=== PATIENT | female | born 1965 | race Caucasian/White ===

== ENCOUNTER 2020-09-28 16:34 | Observation (INO) | payer OTHER ==
--- OUTSIDE RECORDS SUMMARY | 2020-09-28 16:36 | XMS REPORT | Continuity of Care Document ---
:1965 Author Organization [facility] t Address [address] [place] [address] Care Team Providers Name Role Phone Asked, Pcp Primary Care Physician Unavailable Ammy SALVADOR, S Attending Clinician Problems Condition Condition Condition Status Onset Resolution Last Treating Co mments Source Name Details Category Date Date Treatment Clinician Date Depression Depression Disease Active [place] 03-13 Methodi 00:00: st 00 Cervical Cervical Disease Active [place] cancer cancer 03-13 Methodi 00:00: st 00 Hemorrhoid Hemorrhoid Disease Active [place] Method[facility] st Allergies, Adverse Reactions, Alerts This patient has no known allergies or adverse reactions. Family History Family Member Diagnosis Comments Start Date Stop Date Source Natural father Diabetes [place] [facility] Natural father Hypertension [place] [facility] Natural father Myelodysplastic [place] syndrome [facility] Natural mother Arthritis [place] [facility] Natural mother Heart disease [place] [facility] Natural mother Hypertension [place] [facility] Paternal Diabetes [place] grandmother Zoroastrian Natural sister Bipolar disorder [place] [facility] Social History Social Habit Start Date Stop Date Quantity Comments Source History of tobacco Cigarette Smoker Al use Z[facility]rian Cigarettes smoked 2017-04-20 2017-04-20 [place] current (pack per 00:00:00 00:00:[address] ) - Reported Cigarette 2017-04-20 2017-04-20 [place] pack-years 00:00:00 00:00:00 [facility]rian Tobacco use and 2017-04-20 2017-04-20 Current user [place] exposure 00:00:00 00:00:00 [facility] Alcohol intake 2017-04-20 2017-04-20 Current [place] 00:00:00 00:00:00 non-drinker of Zoroastrian alcohol (finding) Sex Ass[birth year] At [birth year] [place] 00:00:00 00:00:00 Z[facility]astrian Smoking Status Start Date Stop Date Source Current every day smoker 2017-04-20 00:00:00 Beti blood [facility]rian Medications Ordered Filled Start Stop Current Ordering Indication Dosage Frequency Signature Comments Components Source Medication Medication Date Date Medication? Clinician (SIG) Name Name PREMARIN 2016- Yes Hot flash, TAKE 1 [place] 0.9 mg 1-09 menopausal TABLET BY [facility] tablet 00:00: MOUTH st 00 EVERY DAY Procedures This patient has no known procedures. Plan of Care Planned Activity Planned Date Details Comments Source Future Scheduled 2020-10-11 INFLUENZA VACCINE [place] [facility] Test 00:00:00 [code = INFLUENZA VACCINE] Future Scheduled 2013-05-26 BREAST CANCER [place] [facility] Test 00:00:00 SCREENING [code = BREAST CANCER SCREENING] Future Scheduled 2013-05-26 COLONOSCOPY SCREENING [facility]rian Test 00:00:00 [code = COLONOSCOPY SCREENING] Future Scheduled 2013-05-26 SHINGLES VACCINES [place] [facility] Test 00:00:00 (#1) [code = SHINGLES VACCINES (#1)] Future Scheduled 1984-05-26 Screening for [facility]odist Test 00:00:00 malignant neoplasm of cervix (procedure) [code = 214424774] Future Scheduled 1975 COVID-19 VACCINE (1) [place] [facility] Test 00:00:00 [code = COVID-19 VACCINE (1)] Encounters Start End Encounter Admission Attending Care Care Encounter Source Date/Time Date/Time Type Type Clinicians Facility Department ID 2020-09-27 2020-09-27 HEATHER Lewis [id number] 00:00:00 00:00:00 [facility] [id number] Surgical [id number] Specialti [id number] [place] 2020-09-21 2020-09-21 Outpatient [facility] [id number] [facility]00 [facility] 2020-09-09 2020-09-09 Hospital Ammy [facility] [id number] 09:42:27 23:59:00 Encounter Sami Petit [id number] [place] [id number] [place] [id number] 2020-08-31 2020-08-31 Office Ammy [facility] [id number] 15:00:48 16:25:25 Visit [facility] [id number] Surgical [id number] [facility] [id number] [place] Results This patient has no known results.
[2020-09-28 18:18] LABS: Absolute Lymphocytes (CBC) 4.1 K/uL (0.7-4.9); Basophils % 1.1 % (0-1.3); Hematocrit 47.8 % (36.0-45.0); Lymphocytes % 31.3 % (15.3-44.8); MPV 8.6 fL (7.6-11.3); RBC Red Blood Cell Count 4.63 M/uL (3.86-4.86)
[2020-09-28 18:54] LABS: ALT/SGPT 82 U/L (12-78); AST/SGOT 39 U/L (15-37); Albumin 3.8 g/dL (3.4-5.0); Alkaline Phosphatase 121 U/L (45-117); BUN Blood Urea Nitrogen 17 mg/dL (7-18); Bicarbonate 31 mmol/L (21-32); Bilirubin Direct < 0.1 mg/dL (0-0.2); Bilirubin Total 0.4 mg/dL (0.2-1.0); Glucose Level 112 mg/dL (74-106); Magnesium 1.9 mg/dL (1.8-2.4); Protein, Total 7.7 g/dL (6.4-8.2); Sodium Level 137 mmol/L (136-145)
[2020-09-28 18:55] LABS: Potassium 2.3 mmol/L (3.5-5.1)
[2020-09-28] MEDS ORDERED: POTASSIUM CL SA 10 MEQ TAB PO ONE (19:37)
[2020-09-28] MEDS ORDERED: NA CHLORIDE 0.9% 100 ML ONE (19:37)
[2020-09-28] MEDS ORDERED: KCL 20 MEQ/100 mL IVPB 20 MEQ/100 ML BAG IV ONE ×2 (19:37→20:58)
--- NOTE | 2020-09-28 19:49 | EDPHYS ---
Physician Documentation [facility] Name: Sonali Herrera Age: 55 yrs Sex: Female : 1965 Arrival Date: 09/28/2020 Time: 16:37 Bed 4 Private MD: Stewart [facility] ED Physician Kojo Nascimento HPI: 09/28 19:51 This 55 yrs old Female presents to ER via Ambulatory with complaints of jr8 Abnormal Lab Results. 19:51 Onset: The symptoms/episode began/occurred at an unknown time. Associated signs and jr8 symptoms: Pertinent positives: muscle weakness and palpitations. Modifying factors: The patient symptoms are alleviated by nothing, the patient symptoms are aggravated by nothing. The patient has not experienced similar symptoms in the past. The patient has been recently seen by a physician:. Patient stated that she has been having muscle cramps and weakness for a few weeks. Stated that she had routine preoperative blood work for upcoming surgery. Was found to have significant hypokalemia and was referred to ED at that time. Patient on chlorthalidone . Historical: - Allergies: 17:18 No Known Allergies; ca1 - PMHx: 17:18 Hypertensive disorder; Hypercholesterolemia; ca1 - PSHx: 17:18 hysterectomy; Cholecystectomy; Hemorrhoidectomy; ca1 - Immunization history:: Client reports receiving the 2nd dose of the Covid vaccine, Client reports receiving the 1st dose of the Covid vaccine, Flu vaccine is not up to date. - Social history:: Smoking status: Patient reports the use of cigarette tobacco products, smokes one-half pack cigarettes per day. ROS: 19:51 Eyes: Negative for injury, pain, redness, and discharge, ENT: Negative for injury, jr8 pain, and discharge, Neck: Negative for injury, pain, and swelling, Respiratory: Negative for shortness of breath, cough, wheezing, and pleuritic chest pain, Abdomen/GI: Negative for abdominal pain, nausea, vomiting, diarrhea, and constipation, Back: Negative for injury and pain, MS/Extremity: Negative for injury and deformity, Skin: Negative for injury, rash, and discoloration. 19:51 Cardiovascular: Positive for palpitations, Negative for chest pain, edema, orthopnea, paroxysmal nocturnal dyspnea. 19:51 Neuro: Positive for weakness. Exam: 19:51 Constitutional: This is a well developed, well nourished patient who is awake, alert, jr8 and in no acute distress. ENT: Nares patent. No nasal discharge, no septal abnormalities noted. Tympanic membranes are normal and external auditory canals are clear. Oropharynx with no redness, swelling, or masses, exudates, or evidence of obstruction, uvula midline. Mucous membranes moist. Neck: Trachea midline, no thyromegaly or masses palpated, and no cervical lymphadenopathy. Supple, full range of motion without nuchal rigidity, or vertebral point tenderness. No Meningismus. Cardiovascular: Regular rate and rhythm with a normal S1 and S2. No gallops, murmurs, or rubs. Normal PMI, no JVD. No pulse deficits. Respiratory: Lungs have equal breath sounds bilaterally, clear to auscultation and percussion. No rales, rhonchi or wheezes noted. No increased work of breathing, no retractions or nasal flaring. Abdomen/GI: Soft, non-tender, with normal bowel sounds. No distension or tympany. No guarding or rebound. No evidence of tenderness throughout. Back: No spinal tenderness. No costovertebral tenderness. Full range of motion. Skin: Warm, dry with normal turgor. Normal color with no rashes, no lesions, and no evidence of cellulitis. MS/ Extremity: Pulses equal, no cyanosis. Neurovascular intact. Full, normal range of motion. Neuro: Awake and alert, GCS 15, oriented to person, place, time, and situation. Cranial nerves II-XII grossly intact. Motor strength 5/5 in all extremities. Sensory grossly intact. Cerebellar exam normal. Normal gait. Vital Signs: 17:15 BP 147 / 89; Pulse 121; Resp 18 S; Temp 98.7(O); Pulse Ox 96% on R/A; Weight 89.81 kg ca1 (R); Height 5 ft. 8 in. (172.72 cm) (R); Pain 0/10; 17:33 BP 136 / 84; Pulse 119; Resp 17 S; Pulse Ox 95% on R/A; jd3 19:00 Pulse 100; Resp 16 S; Pulse Ox 96% on R/A; jd3 19:42 BP 127 / 86; Pulse 99; Resp 18 S; Pulse Ox 98% on R/A; ad5 20:30 BP 133 / 100; Pulse 89; Resp 16; Pulse Ox 95% on R/A; jb4 21:30 BP 145 / 89; Pulse 87; Resp 16; Pulse Ox 98% on R/A; jb4 17:15 Body Mass Index 30.11 (89.81 kg, 172.72 cm) ca1 MDM: 17:43 Patient medically screened. jr8 19:48 Data reviewed: vital signs, nurses notes, lab test result(s), EKG, and as a result, I 8 will admit patient. Data interpreted: Pulse oximetry: on room air is 98 %. Interpretation: normal. Counseling: I had a detailed discussion with the patient and/or guardian regarding: the historical points, exam findings, and any diagnostic results supporting the discharge/admit diagnosis, lab results, the need for further work-up and treatment in the hospital. 09/28 17:51 Order name: CBC with Diff; Complete Time: 18:53 [facility] 09/28 17:51 Order name: Magnesium; Complete Time: 19:18 [facility] 09/28 17:51 Order name: Basic Metabolic Panel; Complete Time: 19:18 [facility] 09/28 17:51 Order name: LFT's; Complete Time: 19:18 [facility] 09/28 18:54 Order name: B12; Complete Time: 20:14 [facility] 09/28 18:54 Order name: Folic Acid,Serum (folate); Complete Time: 20:14 [facility] 09/28 17:19 Order name: EKG; Complete Time: 17:19 [facility] 09/28 17:19 Order name: EKG - Nurse/Tech; Complete Time: 17:19 [facility] 09/28 17:50 Order name: IV; Complete Time: 18:10 [facility] Administered Medications: 19:24 Drug: Potassium Chloride 20 mEq Route: IV; Rate: calculated rate; Site: left jb4 antecubital; 20:30 Follow up: Response: No adverse reaction; IV Status: Completed infusion; IV Intake: jb4 100ml 19:24 Drug: Potassium Chloride 40 mEq Route: PO; jb4 20:30 Follow up: Response: No adverse reaction jb4 20:55 Drug: Potassium Chloride 20 mEq Route: IV; Rate: calculated rate; Site: left jb4 antecubital; 21:55 Follow up: Response: No adverse reaction; IV Status: Completed infusion; IV Intake: jb4 100ml Disposition: 09/29 07:06 Co-signature as Attending Physician, Kojo Nascimento MD I agree with the assessment and kdr plan of care. Disposition Summary: 09/28/20 19:49 Hospitalization Ordered Hospitalization Status: Observation jr8 Provider: Dale Gamino jr8 Location: Telemetry/MedSurg (observation) jr8 Condition: Stable jr8 Problem: new jr8 Symptoms: have improved jr8 Bed/Room Type: Standard [facility] Room Assignment: 215(09/28/20 20:44) bb Diagnosis - Hypokalemia jr8 Forms: - Medication Reconciliation Form jr8 - SBAR form jr8 Signatures: Dispatcher [employer] EDMS Kojo Nascimento MD MD kdr Ballard, Brenda RN RN bb Satish Hall PA PA jr8 Luis Angel Reynolds, RN RN jb4 Irene Deluna RN RN ca1 Corrections: (The following items were deleted from the chart) 09/28 20:44 19:49 jr8 bb
--- NOTE | 2020-09-28 19:49 | ER ---
Nurse's Notes [facility] Name: Sonali Herrera Age: 55 yrs Sex: Female : 1965 Arrival Date: 09/28/2020 Time: 16:37 Bed 4 Private MD: Robbie William Diagnosis: Hypokalemia Presentation: 09/28 17:15 Chief complaint: Patient states: Had blood works done today for preop. They called me ca1 and said my K is at 2.8. Denies chest pain, reports sometimes feel like her heart flutters. Coronavirus screen: Client denies travel out of the [place] in the last 14 days. At this time, the client does not indicate any symptoms associated with coronavirus-19. Ebola Screen: Patient negative for fever greater than or equal to 101.5 degrees Fahrenheit, and additional compatible Ebola Virus Disease symptoms Patient denies exposure to infectious person. Patient denies travel to an Ebola-affected area in the 21 days before illness onset. No symptoms or risks identified at this time. Initial Sepsis Screen: Does the patient meet any 2 criteria? No. Patient's initial sepsis screen is negative. Does the patient have a suspected source of infection? No. Patient's initial sepsis screen is negative. Risk Assessment: Do you want to hurt yourself or someone else? Patient reports no desire to harm self or others. Onset of symptoms was September 28, 2020. 17:15 Method Of Arrival: Ambulatory ca1 17:15 Acuity: JIMBO 2 ca1 Historical: - Allergies: 17:18 No Known Allergies; ca1 - PMHx: 17:18 Hypertensive disorder; Hypercholesterolemia; ca1 - PSHx: 17:18 hysterectomy; Cholecystectomy; Hemorrhoidectomy; ca1 - Immunization history:: Client reports receiving the 2nd dose of the Covid vaccine, Client reports receiving the 1st dose of the Covid vaccine, Flu vaccine is not up to date. - Social history:: Smoking status: Patient reports the use of cigarette tobacco products, smokes one-half pack cigarettes per day. Screenin:34 Abuse screen: Denies threats or abuse. Nutritional screening: No deficits noted. jd3 Tuberculosis screening: No symptoms or risk factors identified. Fall Risk Ambulatory Aid- None/Bed Rest/Nurse Assist (0 pts). Gait- Normal/Bed Rest/Wheelchair (0 pts) Mental Status- Oriented to own ability (0 pts). Total Pace Fall Scale indicates No Risk (0-24 pts). Assessment: 18:00 General: Appears in no apparent distress. comfortable, Behavior is calm, cooperative, jd3 appropriate for age. Pain: Denies pain. Quality of pain is described as reporting periodic cramping throughout body. Neuro: Level of Consciousness is awake, alert, obeys commands, Oriented to person, place, time, situation. Cardiovascular: Denies chest pain, Capillary refill < 3 seconds Patient's skin is warm and dry. Rhythm is sinus tachycardia. Respiratory: Airway is patent Respiratory effort is even, unlabored, Respiratory pattern is regular, symmetrical, Denies cough, shortness of breath. GI: No signs and/or symptoms were reported involving the gastrointestinal system. : No signs and/or symptoms were reported regarding the genitourinary system. EENT: No signs and/or symptoms were reported regarding the EENT system. Derm: Skin is intact, Skin is dry, Skin is normal, Skin temperature is warm. Musculoskeletal: Circulation, motion, and sensation intact. Range of motion: intact in all extremities. 19:00 Reassessment: Patient appears in no apparent distress at this time. No changes from jd3 previously documented assessment. Patient and/or family updated on plan of care and expected duration. Pain level reassessed. Patient is alert, oriented x 3, equal unlabored respirations, skin warm/dry/pink. 19:10 Reassessment: Patient appears in no apparent distress at this time. Patient and/or jb4 family updated on plan of care and expected duration. Pain level reassessed. Patient is alert, oriented x 3, equal unlabored respirations, skin warm/dry/pink. 19:42 Reassessment: Started potassium running with 100ml of NS going at 50ml per hour, pt jb4 unable to tolerate, rate of potassium slowed to 25ml/hr, provider notified, provider okayed to run potassium over 1 hour with 250ml of NS at 250ml/hr. 21:00 Reassessment: Patient appears in no apparent distress at this time. Patient and/or jb4 family updated on plan of care and expected duration. Pain level reassessed. Patient is alert, oriented x 3, equal unlabored respirations, skin warm/dry/pink. 22:00 Reassessment: Patient appears in no apparent distress at this time. Patient and/or jb4 family updated on plan of care and expected duration. Pain level reassessed. Patient is alert, oriented x 3, equal unlabored respirations, skin warm/dry/pink. Vital Signs: 17:15 BP 147 / 89; Pulse 121; Resp 18 S; Temp 98.7(O); Pulse Ox 96% on R/A; Weight 89.81 kg ca1 (R); Height 5 ft. 8 in. (172.72 cm) (R); Pain 0/10; 17:33 BP 136 / 84; Pulse 119; Resp 17 S; Pulse Ox 95% on R/A; jd3 19:00 Pulse 100; Resp 16 S; Pulse Ox 96% on R/A; jd3 19:42 BP 127 / 86; Pulse 99; Resp 18 S; Pulse Ox 98% on R/A; ad5 20:30 BP 133 / 100; Pulse 89; Resp 16; Pulse Ox 95% on R/A; jb4 21:30 BP 145 / 89; Pulse 87; Resp 16; Pulse Ox 98% on R/A; jb4 17:15 Body Mass Index 30.11 (89.81 kg, 172.72 cm) ca1 ED Course: 16:37 Patient arrived in ED. mr 16:37 Robbie William DO is Private Physician. mr 17:17 Triage completed. ca1 17:18 Arm band placed on right wrist. EKG completed in triage. Results shown to MD. ca1 17:31 Rob Hathaway RN is Primary Nurse. jd3 17:33 Patient has correct armband on for positive identification. Placed in gown. Bed in low mh5 position. Call light in reach. Side rails up X 1. Warm blanket given. patient monitor on. Pulse ox on. NIBP on. 17:34 EKG done, by ED staff, reviewed by Kojo Nascimento MD. mh5 17:43 Satish Hall PA is PHCP. jr8 17:43 Kojo Nascimento MD is Attending Physician. jr8 18:10 Inserted saline lock: 20 gauge in left antecubital area, using aseptic technique. Blood jd3 collected. 19:40 Primary Nurse role handed off by Rob Hathaway RN jb4 19:40 Rodolfo, Luis Angel, RN is Primary Nurse. jb4 19:48 Dale Gamino DO is Hospitalizing Provider. jr8 22:18 No provider procedures requiring assistance completed. Patient admitted, IV remains in jb4 place. Administered Medications: 19:24 Drug: Potassium Chloride 20 mEq Route: IV; Rate: calculated rate; Site: left jb4 antecubital; 20:30 Follow up: Response: No adverse reaction; IV Status: Completed infusion; IV Intake: jb4 100ml 19:24 Drug: Potassium Chloride 40 mEq Route: PO; jb4 20:30 Follow up: Response: No adverse reaction jb4 20:55 Drug: Potassium Chloride 20 mEq Route: IV; Rate: calculated rate; Site: left jb4 antecubital; 21:55 Follow up: Response: No adverse reaction; IV Status: Completed infusion; IV Intake: jb4 100ml Intake: 20:30 IV: 100ml; Total: 100ml. jb4 21:55 IV: 100ml; Total: 200ml. jb4 Outcome: 19:49 Decision to Hospitalize by Provider. jr8 22:18 Admitted to Med/surg accompanied by tech, via wheelchair, room 215, with chart, Report jb4 called to CESAR Lemon 22:18 Condition: stable 22:18 Discharge instructions given to patient, Instructed on the need for admit, Demonstrated understanding of instructions. 22:19 Patient left the ED. jb4 Signatures: Kasandra Barrera IsabelSatish PA PA jr8 Luis Angel Reynolds RN RN jb4 Martinez, Maria Rob Gold RN RN jd3 Acob, Cheryl, RN RN ca1 Davidson, Andrea ad5
[2020-09-28] MEDS ORDERED: NA CHLORIDE 0.9% 250 ML ONE ×2 (20:00→20:58)
[2020-09-28 20:13] LABS: Folic Acid, (Folate) 8.6 ng/mL (3.1-17.5)
--- NOTE | 2020-09-28 21:23 | P.HP ---
Certification for Inpatient Patient admitted to: Observation With expected LOS: <2 Midnights Patient will require the following post-hospital care: None Practitioner: I am a practitioner with admitting privileges, knowledge of patient current condition, hospital course, and medical plan of care. Services: Services provided to patient in accordance with Admission requirements found in Title 42 Section 412.3 of the Code of Federal Regulations Patient History Date of Service: 09/28/20 Primary Care Provider: none, orthopedic Dr. Duval Reason for admission: Hypokalemia History of Present Illness: 55-year-old female with history of hypertension, hyperlipidemia presents emergency department with reported low potassium levels. Patient is scheduled to have a right knee surgery on Monday and had preoperative labs indicating a low potassium level of 2.8. Patient presented to the emergency department for evaluation, potassium was checked and level was 2.3. Patient also reports palpitations, fatigue, generalize weakness. Patient takes chlorthalidone at home for hypertension, ED provider wishes to admit under obse rvation for potassium repletion. Allergies No Known Allergies Allergy (Verified 09/28/20 08:34) Home Medications: Atorvastatin Calcium [Lipitor] 10 mg PO BEDTIME 09/28/20 Chlorthalidone 50 mg PO DAILY 09/28/20 Cholecalciferol (Vitamin D3) [Vitamin D 5,000 Iu Cap] 5,000 unit PO DAILY 09/28/20 Diclofenac Sodium 75 mg PO DAILY 09/28/20 Duloxetine HCl 30 mg PO DAILY 09/28/20 Omeprazole 20 mg PO DAILY 09/28/20 - Past Medical/Surgical History -: Hypertension -: Hyperlipidemia -: Hysterectomy -: Cholecystectomy -: Hemorrhoidectomy Psychosocial/ Personal History: Patient employed as a deputy, lives alone - Family History Family History: Reviewed- Non-Contributory - Social History Smoking Status: Current every day smoker Counseled patient to stop smoking for: less than 10 minutes Smoking therapy provided: No (Patient declined) Alcohol use: No CD- Drugs: No Caffeine use: Yes Place of Residence: Home Review of Systems 10-point ROS is otherwise unremarkable General: Weakness, Malaise Cardiovascular: Palpitations Physical Examination - Physical Exam General: Alert, In no apparent distress, Oriented x3 HEENT: Atraumatic, PERRLA, Mucous membr. moist/pink, EOMI, Sclerae nonicteric Neck: Supple, 2+ carotid pulse no bruit, No LAD, Without JVD or thyroid abnormality Respiratory: Clear to auscultation bilaterally, Normal air movement Cardiovascular: Regular rate/rhythm, Normal S1 S2 Gastrointestinal: Normal bowel sounds, No tenderness Musculoskeletal: No tenderness Integumentary: No rashes Neurological: Normal speech, Normal strength at 5/5 x4 extr, Normal tone, Normal affect - Studies Laboratory Data (last 24 hrs) 09/28/20 18:08: Sodium 137, Potassium 2.3 L*, BUN 17, Creatinine 0.91, Glucose 112 H, Magnesium 1.9, Total Bilirubin 0.4, AST 39 H, ALT 82 H, Alkaline Phosphatase 121 H 09/28/20 18:08: WBC 13.00 H D, Hgb 16.4 H, Hct 47.8 H, Plt Count 306 Assessment and Plan - Plan Assessment Hypokalemia likely secondary to use of diuretic therapy chlorthalidone with dehydration Hypertension Hyperlipidemia Plan Hypokalemia likely secondary to use of diuretic therapy chlorthalidone with dehydration: patient given 20 mEq of potassium IV and 40 p.o. in the emergency department, will recheck at midnight, potassium protocol in place. Will hold chlorthalidone, patient will likely need this medication changed at discharge. DVT prophylaxis Lovenox 40 mg subcutaneous once daily. Monitor on telemetry. Hypertension: Will need to adjust patient's chlorthalidone or provide supplemental potassium. Will monitor blood pressure during hospitalization determine need. Hyperlipidemia: Continue medications. Discharge Plan: Home Plan to discharge in: 24 Hours - Advance Directives Does patient have a Living Will: No Does patient have a Durable POA for Healthcare: No - Code Status/Comfort Care Code Status Assessed: Yes (Full code) Critical Care: No Time Spent Managing Pts Care (In Minutes): 55
[2020-09-28] MEDS: NS KCL 20MEQ 20 MEQ/1,000 ML BAG IV SCH (22:26)
[2020-09-28] MEDS ORDERED: DULOXETINE 30 MG CAP PO SCH (23:00)
[2020-09-28 23:43] LABS: Potassium 3.1 mmol/L (3.5-5.1)
[2020-09-28] MEDS ORDERED: POTASSIUM 25 MEQ EFFERV TAB PO ONE (23:58)
[2020-09-29] MEDS: HEPARIN 5000 UNIT/ML 1 ML VIAL SQ SCH ×2 (00:22→07:49)
[2020-09-29 01:25] VITALS: O2SAT 92; BMI 30.1
[2020-09-29 04:26] LABS: Absolute Lymphocytes (CBC) 3.4 K/uL (0.7-4.9); Basophils % 0.6 % (0-1.3); Hematocrit 42.7 % (36.0-45.0); Lymphocytes % 38.6 % (15.3-44.8); MPV 9.3 fL (7.6-11.3); RBC Red Blood Cell Count 4.17 M/uL (3.86-4.86)
[2020-09-29 04:46] LABS: Albumin 3.3 g/dL (3.4-5.0); Bilirubin Total 0.5 mg/dL (0.2-1.0); Magnesium 1.7 mg/dL (1.8-2.4); Potassium 3.1 mmol/L (3.5-5.1); Protein, Total 6.8 g/dL (6.4-8.2); Thyroid Stimulating Hormone 2.08 uIU/mL (0.360-3.740)
[2020-09-29] MEDS ORDERED: MAGNESIUM SULFATE 1 gm IVPB 1 GM/100 ML BAG IV ONE (04:53)
--- NOTE | 2020-09-29 06:09 | P.DS ---
Admission Date: 09/28/20 Discharge Date: 09/29/20 Primary Care Provider: none, orthopedic Dr. Duval Disposition: ROUTINE DISCHARGE Discharge Condition: GOOD Reason for Admission: Hypokalemia Consultations: none Procedures: Medical problem list: Hypokalemia likely secondary to use of diuretic therapy chlorthalidone with dehydration Hypertension GERD Right knee arthritis Brief History of Present Illness: 55-year-old female with history of hypertension, hyperlipidemia. Patient presented with low potassium levels. She had preoperative lab done with a potassium of 2.8. In the ER it was 2.3. The patient had reported some palpitations, fatigue and generalized weakness. Patient had been taking chlorthalidone at home. Patient was admitted for treatment. Hospital Course: Patient presented with hypokalemia secondary to diuretic therapychlorthalidone. Patient was admitted for treatment. Patient was given potassium supplementation with improvement. Patient with history of hypertension. Blood pressures have been stable without any medication at this time. Recommend to discontinue chlorthalidone. Patient has tried lisinopril in the past but this caused an ANUJ cough. She also had taken losartan hydrochlorothiazide with noted elevated blood pressure. For now patient will will monitor her blood pressures daily. Recommend to maintain blood pressure less than 130/80. If blood pressures remain above 140/90 consistently then the patient will be started on carvedilol 3.25 mg 1 pill twice daily. Recommend follow-up with PCP in 1 week to follow-up hospitalization. I will try to reach out to her PCP today so that the patient can be seen this week as the patient is to have surgery on Monday with orthopedics. Recommend to recheck labBMP within 2 days to monitor potassium. Patient with hypertension. As mentioned above patient will go home without any medication to start with. She is to monitor her blood pressures daily. If her blood pressures increase above 140/90 consistently then carvedilol 3.25 mg 1 pill twice daily will be started. As mentioned above chlorthalidone has been discontinued due to hypokalemia. Patient has failed therapy on lisinopril due to ANUJ cough and losartan hydrochlorothiazide thiazide due to poor blood pressure control. Recommend follow-up with PCP within 1 week to follow-up hospitalization. Patient with GERD. At discharge she will continue with Prilosec 20 mg daily. Patient with right knee arthritis. She is to have arthroscopic orthopedic surgery on Monday. Recommend follow-up with PCP within the next 2 days to monitor her blood pressure and recheck BMP. If stable patient can proceed with surgery. Recommend no work at this time. Vital Signs/Physical Exam: Temp Pulse Resp BP Pulse Ox 97.7 F 82 14 118/62 96 09/29/20 04:00 09/29/20 04:00 09/29/20 04:00 09/29/20 04:00 09/29/20 04:00 General: Alert, In no apparent distress, Oriented x3, Cooperative HEENT: Atraumatic Neck: Supple Respiratory: Clear to auscultation bilaterally, Normal air movement Cardiovascular: Normal pulses, Regular rate/rhythm Gastrointestinal: Normal bowel sounds, No tenderness, No masses, No rebound, No guarding Musculoskeletal: No erythema, No tenderness, No warmth Integumentary: No tenderness/swelling, No erythema, No warmth, No cyanosis Neurological: Normal speech, Normal strength at 5/5 x4 extr, Normal tone, Normal affect Laboratory Data at Discharge: WBC 8.90 K/uL (4.3-10.9) D 09/29/20 03:22 Hgb 15.1 g/dL (12.0-15.0) H 09/29/20 03:22 Hct 42.7 % (36.0-45.0) 09/29/20 03:22 Plt Count 255 K/uL (152-406) 09/29/20 03:22 Sodium 139 mmol/L (136-145) 09/29/20 03:22 Potassium 3.1 mmol/L (3.5-5.1) L 09/29/20 03:22 BUN 13 mg/dL (7-18) 09/29/20 03:22 Creatinine 0.73 mg/dL (0.55-1.3) 09/29/20 03:22 Glucose 114 mg/dL (74-106) H 09/29/20 03:22 Magnesium 1.7 mg/dL (1.8-2.4) L 09/29/20 03:22 Total Bilirubin 0.5 mg/dL (0.2-1.0) 09/29/20 03:22 AST 35 U/L (15-37) 09/29/20 03:22 ALT 71 U/L (12-78) 09/29/20 03:22 Alkaline Phosphatase 102 U/L (45-117) 09/29/20 03:22 Triglycerides 197 mg/dL (<150) H 09/29/20 03:22 Cholesterol 163 mg/dL (<200) 09/29/20 03:22 HDL Cholesterol 51 mg/dL (40-60) 09/29/20 03:22 Cholesterol/HDL Ratio 3.20 09/29/20 03:22 Home Medications: Duloxetine HCl 30 mg PO BEDTIME 09/28/20 Omeprazole 20 mg PO DAILY 09/28/20 carvediloL [Coreg] 3.125 mg PO BID #60 tab 09/29/20 New Medications: carvediloL [Coreg] 3.125 mg PO BID #60 tab Physician Discharge Instructions: Patient presented with hypokalemia secondary to diuretic therapychlorthalidone. Patient was admitted for treatment. Patient was given potassium supplementation with improvement. Patient with history of hypertension. Blood pressures have been stable without any medication at this time. Recommend to discontinue chlorthalidone. Patient has tried lisinopril in the past but this caused an ANUJ cough. She also had taken losartan hydrochlorothiazide with noted elevated blood pressure. For now patient will will monitor her blood pressures daily. Recommend to maintain blood pressure less than 130/80. If blood pressures remain above 140/90 consistently then the patient will be started on carvedilol 3.25 mg 1 pill twice daily. Recommend follow-up with PCP in 1 week to follow-up hospitalization. I will try to reach out to her PCP today so that the patient can be seen this week as the patient is to have surgery on Monday with orthopedics. Recommend to recheck labBMP within 2 days to monitor potassium. Patient with hypertension. As mentioned above patient will go home without any medication to start with. She is to monitor her blood pressures daily. If her blood pressures increase above 140/90 consistently then carvedilol 3.25 mg 1 pill twice daily will be started. As mentioned above chlorthalidone has been discontinued due to hypokalemia. Patient has failed therapy on lisinopril due to ANUJ cough and losartan hydrochlorothiazide thiazide due to poor blood pressure control. Recommend follow-up with PCP within 1 week to follow-up hospitalization. Patient with GERD. At discharge she will continue with Prilosec 20 mg daily. Patient with right knee arthritis. She is to have arthroscopic orthopedic surgery on Monday. Recommend follow-up with PCP within the next 2 days to monitor her blood pressure and recheck BMP. If stable patient can proceed with surgery. Patient may continue with Cymbalta 30 mg daily. Recommend no work at this time. Diet: AHA Activity: Ad yahaira Followup: Robbie William, [Primary Care Provider] - Time spent managing pt's care (in minutes): 55
[2020-09-29] MEDS ORDERED: POTASSIUM CL SA 10 MEQ TAB PO ONE (08:00)
[2020-09-29 09:40] VITALS: BP 112/55; TEMP 97.8
[2020-09-29] MEDS: NS KCL 20MEQ 20 MEQ/1,000 ML BAG IV SCH (10:14)
--- NOTE | 2020-09-29 11:47 | EKG ---
Test Date: 2020-09-28 Test Time: 17:14:28 Manager Of Business Operations: ROSANA MEASUREMENT RESULTS: Intervals: Rate: 120 TN: QRSD: 74 QT: 448 QTc: 633 [place]: P: TN: QRS: -40 T: 63 INTERPRETIVE STATEMENTS: sinus tachLeft axis deviation Inferior infarct, age undetermined Anterior infarct, age undetermined Prolonged QT Abnormal ECG Compared to ECG 09/28/2020 07:47:[address] [facility] Electronically Signed On 09-29-20 11:46:57 CDT by Jeremy Naylor
--- NOTE | 2020-10-01 10:58 | EKG ---
Test Date: 2020-10-01 Test Time: 09:40:08 Business Architect: SYBIL MEASUREMENT RESULTS: Intervals: Rate: 68 UT: 146 QRSD: 88 QT: 398 QTc: 423 [place]: P: 37 UT: 146 QRS: -19 T: 46 INTERPRETIVE STATEMENTS: Normal sinus rhythm with sinus arrhythmia Nonspecific T wave abnormality Abnormal ECG Compared to ECG 09/28/2020 17:14:28 T-wave abnormality now present Myocardial infarct finding no longer present Prolonged QT interval no longer present Electronically Signed On 10-01-20 10:58:12 CDT by Jeremy Naylor
== END 2020-09-29 10:50 | disposition home or self-care (01) ==
LOC: ER 16:34 → ERHOLD 19:51 → 2ND 21:32
PROVIDERS: ADMIT Family Medicine; ATTEND Family Medicine
DX: E87.6 Hypokalemia (principal); E86.0 Dehydration; I10 Essential (primary) hypertension; K21.9 Gastro-esophageal reflux disease without esophagitis; M17.11 Unilateral primary osteoarthritis, right knee; E78.5 Hyperlipidemia, unspecified; E78.00 Pure hypercholesterolemia, unspecified; F17.210 Nicotine dependence, cigarettes, uncomplicated; Z90.49 Acquired absence of other specified parts of digestive tract; Z90.710 Acquired absence of both cervix and uterus
CPT/HCPCS: 96365; 93005; 85025 ×2; 80048 ×2; 36415; 83735 ×2; 84132; 80061; 80076; 84443; 84439; 82746; 82607; 80053; 99285; 96366; J1644 ×2; J3480 ×4; J3475; J7050 ×2; G0378 ×2

== ENCOUNTER 2020-10-09 06:21 | Day surgery (SDC) | payer OTHER ==
--- NOTE | 2020-09-28 09:05 | RAD REPORT ---
EXAM DESCRIPTION: RAD - Chest Pa And Lat (2 Views) - 09/28/2020 9:00 am CLINICAL HISTORY: preop COMPARISON: CHEST PA AND LAT 2 VIEW dated 04/01/2008 FINDINGS: No evidence of edema or pneumonia. The heart size is within normal limits.No acute osseous abnormality. No significant pleural effusions or pneumothorax. IMPRESSION: No acute cardiopulmonary disease.
[2020-09-28 09:17] LABS: Absolute Lymphocytes (CBC) 3.3 K/uL (0.7-4.9); Basophils % 0.9 % (0-1.3); Hematocrit 48.4 % (36.0-45.0); Lymphocytes % 31.2 % (15.3-44.8); MPV 9.3 fL (7.6-11.3); RBC Red Blood Cell Count 4.71 M/uL (3.86-4.86)
[2020-09-28 09:20] LABS: Protime INR 1.1
[2020-09-28 09:31] LABS: Potassium 2.8 mmol/L (3.5-5.1)
[2020-10-01 18:35] LABS: Potassium 3.1 mmol/L (3.5-5.1)
[2020-10-09] MEDS ORDERED: Ringers Lactate 1,000 ML IV ONE (06:57)
[2020-10-09] MEDS ORDERED: CEFAZOLIN/SWI 1gm 1 GM/10 ML SYR ONE (06:57)
[2020-10-09] MEDS ORDERED: MIDAZOLAM HCL 2 MG/2 ML INJ ONE (07:37)
[2020-10-09] MEDS ORDERED: propofoL 200 MG/20 ML VIAL IV ONE (07:37)
[2020-10-09] MEDS ORDERED: FENTANYL CITR 100 MCG/2 ML ONE (07:37)
[2020-10-09] MEDS ORDERED: ONDANSETRON 4 MG/2 ML VIAL ONE (07:38)
[2020-10-09] MEDS ORDERED: LIDOCAINE 2% MPF 5 ML VIAL ONE (07:38)
[2020-10-09] MEDS ORDERED: KETOROLAC 30 MG/ML INJ ONE (07:38)
[2020-10-09] MEDS ORDERED: dexAMETHasone 10 MG/ML VIAL ONE (07:38)
[2020-10-09] MEDS: BUPIVACAINE 0.25% PF 30 ML VIAL ONE ×2 (08:02→08:22)
--- NOTE | 2020-10-09 08:32 | P.BOP ---
Preoperative diagnosis: right knee medial meniscus tear Postoperative diagnosis: same, right knee chondromalacia medial femoral condyle Primary procedure: right knee arthroscopic partial medial meniscectomy Traffic Operator: NONE,NONE Estimated blood loss: 3 cc Specimen: none Findings: see dictation Anesthesia: General Complications: None Implants: none Fluids & blood products: per anesthesia record; TT: 24 mins @ 300 mmHg Transferred to: Recovery Room Condition: Good
[2020-10-09] MEDS: FENTANYL CITR 100 MCG/2 ML ONE ×2 (08:37→08:42)
[2020-10-09] MEDS: HYDROMORPHONE HCL 1 MG/ML INJ ONE ×2 (08:49→08:54)
[2020-10-09] MEDS ORDERED: HYDROCODONE/APAP 5/325 MG TAB ONE (09:47)
[2020-10-09 09:55] VITALS: BP 130/56; TEMP 97.8
[2020-10-09 09:57] VITALS: O2SAT 96
--- NOTE | 2020-10-14 10:05 | OP ---
Date of Procedure: 10/09/2020 Surgeon: Aramis Duval MD Preoperative Diagnosis: Right knee medial meniscus tear. Postoperative Diagnoses: 1.Right knee medial meniscus tear. 2.Right knee chondromalacia, medial femoral condyle. Procedure Performed: Right knee arthroscopic partial medial meniscectomy. Anesthesia: General LMA. Fluids: Per Anesthesia record. Estimated Blood Loss: 3 cc. Complications: None. Implants: None. Tourniquet Time: 24 minutes at 300 mmHg. Indication For Procedure: Sonali is a 55-year-old female, who presented to my clinic with signs, sym ptoms, and MRI findings consistent with right knee medial meniscus tear. I discussed with the patien t at length risks and benefits associated with operative and nonoperative treatment. She expressed u nderstanding and elected to proceed with operative treatment. Description Of Procedure: After informed consent was obtained, the patient was identified in the pre operative holding area. The right lower extremity was marked. The patient was then brought back to the operating room, transferred to the operative table in supine fashion, placed under general anesth esia. The right lower extremity was then prepped and draped in usual sterile fashion. A time-out wa s initiated. The correct patient and procedure were confirmed and identified. The patient did recei ve her preoperative prophylactic antibiotics. Esmarch was used to exsanguinate the right lower extre mity and tourniquet was inflated to 300 mmHg. Standard anteromedial and anterolateral portals were c reated. Arthroscope was brought in via the anterolateral portal and diagnostic arthroscopy was perfo rmed. The patient was noted to have some chondromalacia changes on the undersurface of the patella a s well as the trochlear groove. The arthroscope was then brought into both medial and lateral gutter s. There were no loose bodies found within the gutters. The arthroscope was then brought in the med ial compartment. The patient was noted to have some grade 3 and 4 changes of the medial femoral cond yle along its weightbearing surface. A complex tear of the posterior horn and body of the medial men iscus was identified. Using meniscal biters and arthroscopic shaver, a partial medial meniscectomy w as performed to smooth meniscal borders. The meniscus was found to be stable to probe. The arthrosc ope was then brought into the intercondylar notch. The patient was noted to have an intact ACL and P CL, which were stable to probe. The arthroscope was in bilateral compartment. The patient was noted to have pristine cartilage as well as no significant lateral meniscus tear. Arthroscopic instrument s were then brought back into the patellofemoral joint and the joint was then irrigated to remove any loose tissue within the joint. Arthroscopic sutures were then removed without complication. The wo unds were then irrigated thoroughly with normal saline and portals were approximated using a 3-0 Hartley cryl. Sterile dressings were applied. Tourniquet was let down. The patient awakened and transferre d to PACU in stable condition. Postoperative Plan: She will be weightbearing as tolerated to right lower extremity. She will follo w up in clinic in 1 week for wound check. CV/MODL Voice ID: [id number] Report ID: [id number]
== END 2020-10-09 09:45 | disposition home or self-care (01) ==
LOC: OR 06:21
PROVIDERS: ATTEND Orthopaedic Surgery Sports Medicine
PROC: 0SBC4ZZ Excision of Right Knee Joint, Percutaneous Endoscopic Approach (ICD-10-PCS; principal; 2020-10-09 07:30)
DX: S83.231A Complex tear of medial meniscus, current injury, right knee, initial encounter (principal); M25.561 Pain in right knee; I10 Essential (primary) hypertension; E78.00 Pure hypercholesterolemia, unspecified
CPT/HCPCS: 93005; 85025; 80048 ×2; 36415 ×2; 85610; 85730; 71046; 29881; J2704; J2250; J3010 ×2; J1100; J1170; J0690; J7120; J2405

== ENCOUNTER 2023-12-16 13:20 | Inpatient (IN) | payer OTHER ==
[2023-12-16 14:14] VITALS: BMI 26.6
[2023-12-16] MEDS ORDERED: POLYETHYL GLY 3350 17 GM/DOSE PO PRN (15:46)
[2023-12-16 16:53] LABS: Specific Gravity 1.012 (1.005-1.030); Sqamous Epithelial <5 /HPF (None Seen); Urine Bacteria <20 /HPF (<20); Urine Bilirubin NEGATIVE (Negative); Urine Blood 1+ (Negative); Urine Clarity Turbid (Clear); Urine Color Light-Yellow (Yellow); Urine Culture Reflex Order NOT NEEDED; Urine Glucose NEGATIVE (Negative); Urine Ketones NEGATIVE (Negative); Urine Micro Reflex YN NO BILL MICROSCOPIC; Urine Mucus Slight /HPF (None Seen); Urine Nitrite NEGATIVE (Negative); Urine Protein NEGATIVE (Negative); Urine Urobilinogen Normal (Normal); Urine WBC <5 /HPF (<5)
[2023-12-16] MEDS: GABAPENTIN 300 MG CAP PO SCH (19:25)
[2023-12-16] MEDS: MELATONIN 3 MG TABLET PO SCH (19:25)
[2023-12-16] MEDS: ATORVASTATIN 20 MG TAB PO SCH (19:25)
[2023-12-16] MEDS: CARBOXYMETHYLCELLULOSE SODIUM 0.5% 15 ML OPTH SCH (19:28)
[2023-12-17 07:12] LABS: Absolute Basophils 0.1 K/uL (0-0.5); Absolute Eosinophils 0.3 K/uL (0-0.5); Absolute Monocytes 0.6 K/uL (0.1-1.3); Absolute Neutrophil 3.4 K/uL (1.8-8.0); Basophils % 0.8 % (0-1.3); Eosinophils % 4.2 % (0-4.4); Hematocrit 51.2 % (36.0-45.0); Hemoglobin 17.2 g/dL (12.0-15.0); Lymphocytes % 40.5 % (15.3-44.8); MCH 35.4 pg (27.0-35.0); MCHC 33.5 g/dL (32.0-36.0); MCV 105.5 fL (80-100); MPV 9.4 fL (7.6-11.3); Neutrophils % 46.5 % (41.7-73.7); Nucleated Red Blood Cells % 0.1 % (0-0); Platelets 284 thou/uL (152-406); RBC Red Blood Cell Count 4.85 M/uL (3.86-4.86); Red Cell Distribution Width 14.3 % (12.1-15.2)
[2023-12-17 07:27] LABS: Albumin 3.3 g/dL (3.4-5.0); Anion Gap 8.9 mEq/L (5.0-15.0); Magnesium 1.8 mg/dL (1.6-2.4); Potassium 3.9 mEq/L (3.5-5.1); Prealbumin 23.1 mg/dL (20-40)
[2023-12-17 07:44] LABS: Blood Morphology Comment NOTED (NOT SEEN); Macrocytosis 1+; Platelet Estimate ADEQ; White Blood Cell Scan OK (OK)
[2023-12-17] MEDS: PANTOPRAZOLE 40MG TABLET PO SCH (07:48)
[2023-12-17] MEDS: GABAPENTIN 100 MG CAP PO SCH (08:54)
[2023-12-17] MEDS: DULOXETINE 30 MG CAP PO SCH (08:54)
[2023-12-17] MEDS: AMLODIPINE 5 MG TAB PO SCH (08:54)
[2023-12-17] MEDS: ASPIRIN 81 MG CHEWABLE TABLET PO SCH (08:54)
[2023-12-17] MEDS: LIDOCAINE 4% PATCH TOP SCH (08:54)
[2023-12-17] MEDS: DOCUSATE NA/SENNA CONC 1 TAB PO SCH (10:00)
[2023-12-17] MEDS ORDERED: ACETAMINOPHEN 500 MG TAB PO PRN (10:29)
[2023-12-17] MEDS ORDERED: MAGNESIUM HYDROXIDE 8% 30 ML PO PRN (10:33)
[2023-12-17] MEDS: MAGNESIUM OXIDE 400 MG TAB PO SCH (12:02)
--- NOTE | 2023-12-17 13:33 | HP ---
Date of Admission: 12/16/2023 Time Of Service: 10 a.m. Chief Complaint: "I want to walk again. My left arm and leg are weak after the stroke." History Of Present Illness: Ms. 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 [facility] Prior to her stroke, she was independent, driving, cooking, working without li mitations in a demanding job, and on October 09, 2023, she was found on the floor, unable to move, and w as life-flighted to [facility], where imaging identified a large ri ght MCA territory ischemic infarct and a small right frontoparietal ischemic infarct along with the r ight ICA occlusion. She underwent a thrombectomy and eventually due to dysphagia, had a PEG tube page josh on 07/19/2023. She was transferred to [facility] for inpatient aggressive rehabilitation on October 16, and was discharged home on November 06. While at home, she declined. She indicated that one day she fell out of bed, hitting the right knee, and was petrified about how painful it was and she was unab le to move until she had the help being lifted up. Since the fall, she has had posttraumatic stress from the fear of falling again and more injury. She is densely paretic on the left upper extremity. She has significant weakness in left lower extremity. Unable to stand and ambulate. She has safety awareness issues, impulsivity. Currently, she is at moderate to maximum assistance for functional m obility, maximum assistance for all activities of daily living and needing significant help just for basic activities. It turns out that the PEG tube now may be removed at some point. It was placed 2 months ago. She is now fully able to eat independently with all consistencies without aspiration. H er family nurse practitioner recommended her for inpatient rehabilitation again and now we are seeing in rehabilitation to help her to improve her activities of daily living, transfer as safely as possi ble, mobilize with a wheelchair and to be able to manage her nutritional status. Past Medical History: As noted above. Past Surgical History: Cholecystectomy, bile duct surgery, left total knee arthroplasty, hysterectom y. Social History: Former smoker. Allergies: NO KNOWN DRUG ALLERGIES. Medications: Tylenol 500 mg every 6 hours as needed. Norvasc 5 mg daily. Eliquis 2.5 mg twice chloe y. Artificial Tears 1 drop twice daily in each eye. Aspirin 81 mg daily. Lipitor 20 mg at bedtime. Zyrtec 5 mg daily. Cymbalta 30 mg daily. Gabapentin 100 mg in the morning and at around 2, 300 mg at night. Lidocaine patch to apply topically daily. Milk of magnesia 30 mL daily. Magnesium oxide 400 mg twice daily. Melatonin 3 mg at bedtime. Robaxin 750 mg 3 times daily. Naprosyn 250 mg 3 ti mes daily as needed. Protonix 40 mg daily. Senokot 2 at bedtime. Trazodone 50 mg at night, and Gly colax 17 g daily. Laboratory Studies: White blood cell count 7.3, hemoglobin 17.2, hematocrit 31.2, MCV 105, MCH 35.4, those are slightly elevated. Her platelets 284. Sodium 138, potassium 3.9, chloride 106, carbon di oxide 27, BUN 16, creatinine 0.75, glucose 100. Hemoglobin A1c is pending. Calcium 9.8, magnesium 1 .8, albumin 3.3, prealbumin 23.1. Urinalysis is turbid clarity, 1+ blood, 5-10 red blood cells, othe rwise unremarkable. Family History: Noncontributory. Social History: Patient lives alone. Smoked in the past. No recent alcohol use. No drug use. Review of Systems: She reports some pain in the left shoulder and arm, which is the paretic side where the arm hangs wit hout support, most of the time. She has no significant proximal or distal movement in the left upper extremity and there is pain in the left arm at the lateral aspect. 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 At times, it will, reportedly, she says, actua lly will pull her PEG tube at night causing pain and may wake her from sleep. Also, some stiffness a nd spasms in the left lower extremity. She is actually depressed which was helped by the Allan macedo d she says she is a jovial person and looks at life in a positive way. Current Level Of Functioning: Setup assistance for eating, oral hygiene. Maximum assistance for harry leting, bathing. Moderate assistance for upper body dressing and lower body dressing along with masoud ing and doffing footwear. Moderate assistance from rolling left to right and right to left. For sit ting to lying, maximum assistance. For lying to sitting on side of bed, maximum assistance. Sit to stand, maximum assistance. Transfer from bed to chair to toilet and shower, maximum assistance. Amb ulation only 2 feet at maximum assistance with a rolling walker. Physical Examination: Vital Signs: Blood pressure 127/77, pulse 67, respiratory rate 16, temperature 97.7, oxygen saturati on 97%. Weight 175 pounds. Height 5 feet 8 inches. BMI 26.6. General: Ms. Herrera is sitting in a chair comfortably. Daughter is on the phone. HEENT: She is normocephalic, atraumatic. Sclerae anicteric. Oropharynx pink and moist. Neck: Supple. Chest: Clear. Heart: Regular. Extremities: Showed no significant edema, cyanosis, or clubbing. Neurological: Subtle left nasolabial fold decrease. She has good excursions on smiling. No obvious expressive or receptive aphasias. Decreased to touch in the left face. She has a dense left homony mous hemianopsia. Unable to see objects in the left visual field in upper, middle, and lower areas. She is able to see out to the right visual field without restriction. Motor: She has dense paresis in the left upper extremity, 0 noted proximally and distally, perhaps trace in the arm when gravity is eliminated at the biceps. On the left lower extremity, she has around 2-3 proximally. She has a footdrop, and no significant movement. They are up and down on the right upper and lower extremity. She has no significant strength limitations. Sensation, decreased light touch temperature on the le ft compared to the right side. Coordination intact in upper and lower extremities. Reflexes brisk l eft compared to her right side, upper and lower extremities. Rehab And Medical Assessment And Plan: Ms. Herrera is a 58-year-old patient in the rehabilitation unit with impairment category 20, miscellaneous. Impairment group code is 16, debility, noncardiac, nonpulmonary. Etiologic diagnosis of lacunar, ataxic, hemiparesis of the left nondominant side. Her comorbids are decreased mobility, decreased physical functioning, diabetes mellitus, hypertension, d yslipidemia, multiple falls, hypertension, insomnia, left-sided weakness, left shoulder pain, urinary incontinence, and she has a PEG tube in place that may be removed at some point, and she had the lef t total knee arthroplasty and cognitive issues following her stroke which primarily involved memory l oss and she does have impulsivity. Plan: She will have physical, occupational, and speech therapy for 3.5 hours, 5 of 7 days. We will continue with aggressive management of her hypertension with Norvasc and clonidine 0.1 for systolic g reater than 170, as needed. Continue with Cymbalta for depression. Continue with Zyrtec for allergi es, Lipitor for dyslipidemia, Artificial Tears for dry eyes, Eliquis 2.5 mg twice daily for DVT risk reduction, aspirin 81 mg daily for stroke risk reduction, gabapentin 100 twice daily and 300 at night for neuropathic pain, lidocaine patch apply to the right knee and left shoulder. The patient did sa y she has a patch from home that she would like to use, she was told, and she said it is good natural oils. She may bring that patch and apply it, once the nurse is aware of it and so they can track it . She has Naprosyn on board, Protonix for reflux, Senokot for constipation, Desyrel for insomnia. Comorbidities That Are Impacting Rehabilitation: Currently, she does have the PEG tube in place whic h she says the left arm may grab at night and wake her up. We will address that by putting lidocaine patch around there and will adjust as appropriate, gabapentin, and will put an abdominal binder arou nd the belly to remove that arm from pulling on the area. She is somewhat impulsive. Again, she was instructed on how important it is to have the nursing staff assist her with all transfers and mobili zation to prevent falls, which she says she has PTSD from. Rehab Specific Plan: Ms. Herrera will have physical and occupational therapy and if need be speech therapy to help her with the ability to transfer from bed to chair. If need be, sliding board into a tub and out of a tub, and to be able to do aus-te-sahxy with the independence, mobilize with a whee lchair towards independence. It may be very difficult for her to ambulate any meaningful distances w ith a rolling walker or to go up and down steps, but we will still attempt to work with that, work on her ability to dress upper and lower body, to don and doff footwear and do all of these safely. Als o, speech to help make good final decisions about her care, her transfer, medications, and followup. She will also at some point and after discharge will have the PEG tube addressed and removed by like ly surgeon, Dr. Snider. Ms. Herrera and her daughter have good understanding of the process of admission to the inpatient r ehabilitation facility, how she will benefit from physical, occupational, and if need be, speech ther apy. She will have 24 hours a day, 7 days a week, skilled rehabilitation nursing, daily physician ev aluation and management, and psychologist social evaluation and management for discharge planning, home e quipment, and continue rehabilitation therapy and physician followup. If need be additional help fro m the hospitalist service, pulmonary service, cardiology service will be consulted. Barriers To Discharge: Currently, she is still significantly impulsive and is not likely to be able to ambulate meaningful distances and I will place her at risk of falls, especially at night which has occurred before. She will really have emphasis placed on this. Family training will be very import ant. She may have to go to long term depending on how she is doing, but the goal will be to go back home with therapy continuing and she may need 24-hour care at home as well. Length Of Stay: Around 14 days. Disposition: Home with family and Home Health to continue. Prognosis: Fair. Rehab Specific Goals: 1.Become independent with upper and lower body dressing, and donning and doffing footwear. 2.Independently mobilize a wheelchair 250 feet. 3.Work on independent transfers. She may not be able to ambulate and go up and down steps, but will attempt with moderate assistance for her to ambulate around 5-10 feet. 4.Independently work on cognitive functioning and sound decision making. The above goals were reviewed with Ms. Herrera and she is in agreement. By signing this document, I acknowledge I personally performed a full physical examination on Ms. Sanford dumont no later than 24 hours after her admission to the inpatient rehabilitation unit and it has bee n determined that she is able to tolerate the above course of treatment at an intensive level for a r easonable period of time. A detailed individualized plan of care for her will be completed by hospit al day 4 based on the preadmission screen, history and physical and therapy evaluations. RAJEEV Voice ID: [id number]
[2023-12-17] MEDS: NAPROXEN 250 MG TAB PO PRN (16:20)
[2023-12-17] MEDS: APIXABAN 2.5 MG TABLET PO SCH (20:00)
[2023-12-17] MEDS: ENSURE ENLIVE 237 ML CAN PO SCH (20:01)
[2023-12-17] MEDS: methocarbamoL 750 MG TAB PO PRN (23:24)
[2023-12-17] MEDS: TRAZODONE 50 MG TABLET PO PRN (23:26)
[2023-12-18] MEDS: CETIRIZINE HCL 5 MG TABLET PO PRN (10:59)
[2023-12-18] MEDS: DOCUSATE NA/SENNA CONC 1 TAB PO PRN (11:00)
[2023-12-18] MEDS: LIDOCAINE 4% PATCH TOP SCH (11:00)
[2023-12-18] MEDS: CARBOXYMETHYLCELLULOSE SODIUM 0.5% 15 ML OPTH PRN (11:01)
[2023-12-18] MEDS: GABAPENTIN 300 MG CAP PO SCH (19:44)
--- NOTE | 2023-12-19 00:06 | PN ---
Date of Progress Note: 12/18/2023 Time Of Service: 1:35 p.m. Subjective: Ms. Herrera is lying in bed in between therapy sessions. She reports no significant c hange in the dense left upper extremity paresis. 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 As a result, she will have an abdominal binder in page ce when asleep at night to help decrease that and cause pain and may wake her at night. Otherwise, s he is feeling much better about therapy and has no new complaints. Objective: No fevers, chills. No significant myalgias, arthralgias. Some spasms of the left should er. Pain that is mitigated with lidocaine patch to the left shoulder and the right knee, which needs right knee replacement with Dr. Vargas, which will be done once she is away from the acute stroke phase and out of rehab. A lidocaine patch was placed on the right knee. Physical Examination: Vital Signs: Blood pressure 131/77, pulse of 78, respiratory rate 16, temperature 96.8, oxygen satur ation 95%. General: Ms. Herrera still has dense paresis of the left upper extremity. No significant movement there. Left lower extremity around 2/5 to 3/5 proximally and distally. Decreased sensation on the left compared to right side. She has a left homonymous hemianopsia. Decreased movement of the left nasolabial fold. Laboratory Studies: No new laboratory studies compared to yesterday. Yesterday, laboratory studies showed sodium 138, potassium 3.9, chloride 106, carbon dioxide 27, BUN 16, creatinine 0.75, glucose o f 100. Hemoglobin A1c 5.4, prealbumin 23.1, albumin 3.3, magnesium 1.8, calcium 9.8. Hemoglobin 17. 2, hematocrit 51.2, white blood cell count 7.3, platelets 284. Urinalysis from the 5th, turbid eliseo ty, 1+ blood, 5-10 red blood cells, otherwise unremarkable. X-ray/imaging: No new x-rays or imaging. Medications: Tylenol Extra Strength 500 mg every 6 hours as needed for acou-sw-iyyerzci pain; Norvas c 5 mg daily; Eliquis 2.5 mg twice daily; Artificial Tears apply 1 drop twice daily to each eye; aspi rin 81 mg daily; Lipitor 20 mg at bedtime; Zyrtec 5 mg daily; Cymbalta 30 mg daily; gabapentin 300 mg twice daily; lidocaine patch apply topically daily as indicated; milk of magnesia 30 mL daily for co nstipation; magnesium oxide 400 mg twice daily; melatonin 3 mg at bedtime; methocarbamol 750 mg 3 jarad es daily; Naprosyn 250 mg twice daily; Ensure Enlive 237 mL twice daily; Protonix 40 mg daily; [place] t-S 2 twice daily; Desyrel 50 mg at bedtime. Progress Made With Physical, Occupational, And Speech Therapy: Today, with Physical Therapy, she was able to ambulate with parallel bars, 2 sets of 10 feet forward, 10 feet backwards with verbal cues. She did start to train with a single-prong cane 5 feet with moderate assistance due to losing postur al control. With Occupational Therapy, she did require maximal assistance for lower body dressing, m oderate assistance for upper body dressing, moderate assistance for showering and washing buttocks, m aximal assistance for toileting, minimum assistance for grooming, supervision for eating. With her s peech, she was evaluated with long-term goal of reading independently, paragraph level with 90% accur acy, improving executive functional skills with standby assistance level with improved safety and to be able to return to home with independence and some assistance of family. Assessment: Ms. Herrera is a 58-year-old patient in the rehabilitation unit with a lacunar infarct in the right brain producing dense hemiparesis in the left upper extremity and lesser extent in the left lower extremity with dysarthria and dysphagia. She has comorbids, constipation, insomnia, malnu trition, muscle spasms, left upper extremity alien limb syndrome, neuropathic pain, depression, dysli pidemia, hypertension, and dry eyes. Plan: 1.She will continue with physical, occupational, and speech therapy, 3.5 hours, 5 of 7 days. 2.Her list of medications as noted above continued to manage her comorbid conditions. She does have DVT prophylaxis on board with Eliquis 2.5 mg twice daily. Stroke risk managed with aspirin and Lipi tor, and other medications such as Cymbalta for depression, melatonin for insomnia along with the trazodone at night. She has Senokot for constipation and reflu x is managed with Protonix. LACIE/BOZENA Voice ID: [id number] Report ID: [id number]
[2023-12-19] MEDS: TRAMADOL HCL 50 MG TAB PO SCH (14:22)
--- NOTE | 2023-12-20 01:23 | PN ---
Date of Progress Note: 12/19/2023 Time Of Service: 1:35 p.m. Subjective: Ms. Herrera is lying in bed and still somewhat worried about slow recovery of the left hemiparesis. Her left alien limb syndrome is still present. When in bed, abdominal binders are in place and the left arm is not able to hold onto the PEG tube. She is managing that better. She has no new complaints. Objective: She denies any fevers, chills. She has mild myalgias and arthralgias and spasming in the left arm and shoulder occasionally occurring. She did mention she needs to see Dr. Dhillon tomorro w. Dr. Vargas, which was actually noted in the last note is Dr. Dhillon and she will see him for evaluation for possible replacement of the right knee. However, she was told of course that the left side of the body is the one that has had a stroke where she has weakness in the left leg and if ther e is surgery done on the right leg, she will have 2 weak legs and be significantly debilitated and ta ke a longer time to recover and she will likely then not have surgery in the right knee. She did hav e 2 pain patches placed in the right knee, but still said there was significant pain and therefore me dications were adjusted. Physical Examination: Vital Signs: Blood pressure 128/75, pulse 89, respiratory rate 17, temperature 98.3, oxygen saturati on 93%. General: Again, Ms. Herrera is resting comfortably. Extremities: She did say the right knee which has the brace on there as she was doing some sit-to-st and and trying to stand up on a step in the gym did have some pain and again 2 pain patches were plac ed. Otherwise, no new deficits. She has significant weakness in the left arm with some contractures in the fingers, very difficult for her to do any and she actually has no voluntary movement there to do any meaningful functional use. Laboratory Studies: No new laboratory studies. X-ray/imaging: No new x-rays or imaging. Medications: Medications have been reviewed. She now has Protonix 40 mg daily and she has scheduled tramadol which is 50 mg daily to help manage with the pain. She has Tylenol as well 500 mg as neede d in addition to duloxetine 30 mg daily and gabapentin 300 mg twice daily. Furthermore, Naprosyn 250 mg 3 times daily is there for pain, mild to moderate. Progress Made With Physical And Occupational Therapy: Today, she did toe taps on a 4-inch step with right lower extremity working on left lower extremity balance and stability. Did shift back and fort h for her balance stepping up and down before any step with right handrails for support and required moderate assistance for that. Majlr-os-ucpts transfer from wheelchair to and from the plinth table w as done. Sea-mx-zczin training from an elevated table done with moderate assistance. With occupatio nal therapy, minimum assistance for wheelchair to toilet transfer, maximum assistance for pulling upp er and lower body dressing and down, and also for toileting. Had very poor standing balance. With h er speech, she needed maximum assistance to locate every target due to the visual field deficit on th e left. She did require moderate assistance again scanned to the left, accuracy was 70%. Assessment And Plan: Ms. Herrera is a 58-year-old patient with stroke affecting the right brain an d left body. She has significant issues of degenerative changes in the knees. She has had the left knee replaced beside of the stroke and the right knee needs replacing, but is not likely to be done i n close proximity to her stroke. She will see Dr. Dhillon in the morning and will be evaluated by leena izaguirre for perhaps conservative treatment until she is able to have it replaced. In the meantime, she wi ll continue with physical, occupational, and speech therapy. Continue all medications as noted. LB/MODL Voice ID: [id number] Report ID: [id number]
[2023-12-20] MEDS: PANTOPRAZOLE 40MG TABLET PO SCH (07:18)
[2023-12-20] MEDS: HYDROCODONE/APAP 5/325 MG TAB PO PRN (15:49)
[2023-12-20] MEDS: GABAPENTIN 300 MG CAP PO SCH (19:17)
--- NOTE | 2023-12-20 22:31 | RAD REPORT ---
EXAM: Knee Left 2 View HISTORY: [facility] s/p left TKA and sunrise view COMPARISON: None TECHNIQUE: 3 views of the left knee were obtained. FINDINGS: No knee effusion is seen. There is no evidence of acute fracture or dislocation. Left knee arthroplasty hardware in satisfactory positioning. No soft tissue swelling or other soft tissue abnormality is present. IMPRESSION: No evidence of acute osseous abnormality.
--- NOTE | 2023-12-21 00:54 | PN ---
Date of Progress Note: 12/20/2023 Time Of Service: 1:20 p.m. Subjective: Ms. Herrera is resting in bed. She is in moderately depressed mood because of the sig nificant weakness on the left side from her stroke, which she has dense paresis of left arm. She sti ll notes that there is some alien limb type activity, but when the abdominal area is covered, where s he has a PEG tube placed, the left arm is unable to grab onto that and an abdominal binder is used. Objective: No fevers or chills. Still some myalgias and arthralgias, especially in the left shoulde r, which is the paretic side that is hanging down, and the right knee, which needs replacement, for joanna vickers she will see Dr. Dhillon today for an evaluation. The left knee was replaced prior to her stro ke and that is the paretic side as the left leg. Physical Examination: Vital Signs: Blood pressure is 130/75, pulse 65, respiratory rate 16, temperature 97.4, oxygen satur ation 94%. General: Ms. Herrera again is resting comfortably. She is in no significant distress. Neuromuscular: Of course does mention the pain, and pain medications were adjusted today including N orco 5/325, gabapentin 600 mg 2 times a day and tramadol was discontinued. She does have the paretic left arm, that is densely paretic. Left leg also paretic, but is able to arrive around 3/5 strength . Right side, upper and lower extremities, 5/5. Laboratory Studies: No new laboratory studies. X-ray/imaging: No new x-rays or imaging except there was a knee x-ray done, reports are pending. Medications: She continues on Eliquis 2.5 mg twice daily, Norvasc 5 mg daily, [place] 5/325 every 6 ho urs as needed for pain, Tylenol 500 mg every 6 hours. She has Artificial Tears 1 drop in each eye tw ice daily as needed, aspirin 81 mg daily, Lipitor 20 mg at bedtime, Zyrtec 5 mg daily as needed, Cymb harris 20 mg daily, gabapentin 600 mg twice daily, lidocaine patch apply 2 topically daily as appropria te, melatonin 3 mg at bedtime, magnesium oxide 400 mg twice daily, milk of magnesium 30 mL daily for constipation, Robaxin 750 mg 3 times daily, Naprosyn 250 mg 3 times daily, Ensure Enlive 237 mL twice daily, Protonix 40 mg daily, Glycolax 17 g daily, and Senokot-S 2 tablets twice daily along with Raghu yrel 50 mg at bedtime for insomnia. Progress Made With Physical, Occupational, And Speech Therapy: Today, with physical therapy, sit-to- stand from wheelchair and parallel bars done with moderate assistance. She did have some left arm an d right knee pain as noted, and again medications were changed. Tramadol 50 mg, she said, did nothin g for her pain and therefore that is why the pain medication was escalated. She did ambulate in the parallel bars 8 feet forwards and 8 feet backwards with cuing required. With occupational therapy, s he did tolerate left scapular manipulation, range of motion and stretching, right and left deltoid, f lexion, and abduction to help decrease her stiffness. Again, she is going to see Dr. Dhillon later today. Regarding her speech, she did recall details of a picture seen with 100% accuracy and minimum assistance. Visual scanning used during an task with 80% accuracy and maximum cues. Assessment: Ms. Herrera is a 58-year-old patient in rehabilitation unit with a right lacunar infar ct in the posterior region producing dense paresis of left upper extremity and lesser extent to the l eft lower extremity. She has significant arthritic degenerative changes in the knee, where the left was replaced and the right knee needs replacement and she will see Dr. Dhillon today for it. She do es have significant pain in her left shoulder because of the loss of tone. She is getting a shoulder brace to facilitate moving the shoulder back upwards to minimize stretching of the brachial plexus a nd minimize pain. Her additional comorbidities include decreased mobility, decreased physical functi oning, insomnia, malnutrition, gastroesophageal reflux, neuropathic pain, depression, dyslipidemia, d ry eyes, hypertension. She will continue her physical and occupational therapy 3.5 hours, 5 of 7 day s. Continue on all medications as noted with adjustments made to the pain medications. Continue blayne p venous thrombosis prophylaxis with Eliquis 2.5 mg twice daily. Continue with medication for dyslip idemia as noted. Continue to give gabapentin for neuropathic pain that was increased today. Continue Robaxin as wel l. LB/MODL Voice ID: [id number] Report ID: [id number]
[2023-12-21 06:38] LABS: Absolute Eosinophils 0.3 K/uL (0-0.5); Absolute Lymphocytes (CBC) 2.8 K/uL (0.7-4.9); Absolute Monocytes 0.6 K/uL (0.1-1.3); Absolute Neutrophil 2.9 K/uL (1.8-8.0); Basophils % 0.7 % (0-1.3); Eosinophils % 4.8 % (0-4.4); Hematocrit 46.3 % (36.0-45.0); Hemoglobin 15.9 g/dL (12.0-15.0); Lymphocytes % 41.4 % (15.3-44.8); MCH 36.1 pg (27.0-35.0); MCHC 34.4 g/dL (32.0-36.0); MCV 104.9 fL (80-100); MPV 9.1 fL (7.6-11.3); Neutrophils % 44.1 % (41.7-73.7); Nucleated Red Blood Cells % 0.2 % (0-0); Platelets 241 thou/uL (152-406); RBC Red Blood Cell Count 4.41 M/uL (3.86-4.86); Red Cell Distribution Width 14.1 % (12.1-15.2)
[2023-12-21 06:51] LABS: Anion Gap 10.9 mEq/L (5.0-15.0); Potassium 3.9 mEq/L (3.5-5.1); Prealbumin 24.7 mg/dL (20-40)
--- NOTE | 2023-12-21 21:00 | PN ---
Date of Progress Note: 12/21/2023 Time Of Service: 1:15 p.m. Subjective: Ms. Herrera is in the gym doing exercises with her left arm, which is the paretic arm. She is also trying to visualize a page to bring her left homonymous hemianopsia into her perception . Review of Systems: No fevers, chills, nausea, vomiting. Still mild myalgias, arthralgias in left upper extremity and le ft lower extremity. Physical Examination: Vital Signs: Blood pressure 120/78, pulse 77, respiratory rate 16, temperature 97, and oxygen satura tion 97%. General: Ms. Herrera again is sitting comfortably. Neuro: She has from her perspective a left homonymous hemianopsia, dense paresis of left upper extre mity, more improved in the left lower extremity. Laboratory Studies: White blood cell count 6.7, hemoglobin 15.9, platelets 241. Sodium 140, potassi um 3.9, chloride 106, carbon dioxide 27, BUN 24, creatinine 0.78, glucose 106, calcium 9.4. Magnesiu m 2.0. Albumin 3.0, prealbumin 24.7. X-ray/imaging: No new x-rays or imaging. Progress Made With Physical, Occupational, And Speech Therapy: With physical therapy today, she did use the parallel bars and she did 8 feet forward and 8 feet backwards. With a rolling walker, she co robert 20 feet with moderate assistance. Qqk-pv-xnkmr done with moderate assistance. With occupation al therapy, self propels a wheelchair with partial assistance, steering required. Worked on scanning [id number] for the letter A to help with her left homonymous hemianopsia. With speech, used visu al scanning to connect numbers in order and she did that pattern with 100% accuracy and minimum janet tance. Assessment: Ms. Herrera is a 58-year-old patient with right hemispheric stroke producing dense par esis of left upper extremity, left homonymous hemianopsia, and left lower extremity weakness. She grady s comorbid dyslipidemia, dry eyes, depression, insomnia, constipation, malnutrition, alien limb syndr ome. She has decreased mobility, decreased physical functioning. Plan: 1.She will continue with physical, occupational, and speech therapy, 3.5 hours a day, 5 of 7 days. 2.She has a list of medications, which are continued including Eliquis for DVT risk reduction, Norva sc for blood pressure control, [place] for pain, Lipitor for dyslipidemia, Zyrtec for allergies, Cymbal ta for depression and neuropathic pain along with gabapentin. She is on Milk of Magnesia for constip ation, Robaxin for muscle spasms, melatonin for insomnia, Protonix for GE reflux, Ensure alive for he r malnutrition. LACIE/BOZENA Voice ID: [id number] Report ID: [id number]
--- NOTE | 2023-12-22 13:16 | P.RH.PN ---
Estimated Length of Stay: 15 Expected Discharge Date: 12/29/23 Discharge Disposition Plan: Home Family Support: Yes Skilled Nursing Goal: Mobility, Transfers, Self Care Vital Signs: Last Vital Signs Temp 97 F 12/22/23 06:28 Pulse 66 12/22/23 08:16 Resp 18 12/22/23 09:17 BP 132/83 12/22/23 08:16 Pulse Ox 98 12/22/23 09:17 Laboratory: Laboratory Last Values WBC 6.70 thou/uL (4.3-10.9) 12/21/23 05:21 RBC 4.41 M/uL (3.86-4.86) 12/21/23 05:21 Hgb 15.9 g/dL (12.0-15.0) H 12/21/23 05:21 Hct 46.3 % (36.0-45.0) H 12/21/23 05:21 MCV 104.9 fL (80-100) H 12/21/23 05:21 MCH 36.1 pg (27.0-35.0) H 12/21/23 05:21 MCHC 34.4 g/dL (32.0-36.0) 12/21/23 05:21 RDW 14.1 % (12.1-15.2) 12/21/23 05:21 Plt Count 241 thou/uL (152-406) 12/21/23 05:21 MPV 9.1 fL (7.6-11.3) 12/21/23 05:21 Neutrophils % 44.1 % (41.7-73.7) 12/21/23 05:21 Lymphocytes % 41.4 % (15.3-44.8) 12/21/23 05:21 Monocytes % 9.0 % (3.3-12.3) 12/21/23 05:21 Eosinophils % 4.8 % (0-4.4) H 12/21/23 05:21 Basophils % 0.7 % (0-1.3) 12/21/23 05:21 Absolute Neutrophils 2.9 K/uL (1.8-8.0) 12/21/23 05:21 Absolute Lymphocytes 2.8 K/uL (0.7-4.9) 12/21/23 05:21 Absolute Monocytes 0.6 K/uL (0.1-1.3) 12/21/23 05:21 Absolute Eosinophils 0.3 K/uL (0-0.5) 12/21/23 05:21 Absolute Basophils 0.0 K/uL (0-0.5) 12/21/23 05:21 Platelet Estimate Adeq 12/17/23 06:24 Macrocytosis 1+ 12/17/23 06:24 Morphology Comment Noted (NOT SEEN) 12/17/23 06:24 Sodium 140 mEq/L (136-145) 12/21/23 05:21 Potassium 3.9 mEq/L (3.5-5.1) 12/21/23 05:21 Chloride 106 mEq/L (98-107) 12/21/23 05:21 Carbon Dioxide 27 mEq/L (21-32) 12/21/23 05:21 Anion Gap 10.9 mEq/L (5.0-15.0) 12/21/23 05:21 BUN 24 mg/dL (7-18) H 12/21/23 05:21 Creatinine 0.78 mg/dL (0.55-1.02) 12/21/23 05:21 Est GFR (CKD-EPI) 87 ml/min (=/>90) L 12/21/23 05:21 Glucose 106 mg/dL (74-106) 12/21/23 05:21 Hemoglobin A1c 5.4 % (4.2-6.3) 12/17/23 06:24 Calcium 9.4 mg/dL (8.5-10.1) 12/21/23 05:21 Magnesium 2.0 mg/dL (1.6-2.4) 12/21/23 05:21 Albumin 3.0 g/dL (3.4-5.0) L 12/21/23 05:21 Prealbumin 24.7 mg/dL (20-40) 12/21/23 05:21 Urine Color Light-yellow (Yellow) 12/16/23 15:55 Urine Clarity Turbid (Clear) H 12/16/23 15:55 Urine pH 6.0 (5.0-7.0) 12/16/23 15:55 Ur Specific [place] 1.012 (1.005-1.030) 12/16/23 15:55 Glucose (UA)(Auto) Negative (Negative) 12/16/23 15:55 Urine Ketones Negative (Negative) 12/16/23 15:55 Urine Blood 1+ (Negative) H 12/16/23 15:55 Urine Nitrite Negative (Negative) 12/16/23 15:55 Urine Bilirubin Negative (Negative) 12/16/23 15:55 Urine Urobilinogen Normal (Normal) 12/16/23 15:55 Ur Leukocyte Esterase Negative [place]/uL (Negative) 12/16/23 15:55 Urine RBC 5-10 /HPF (None Seen) H 12/16/23 15:55 Urine WBC <5 /HPF (<5) 12/16/23 15:55 Ur Squamous Epith Cells <5 /HPF (None Seen) 12/16/23 15:55 U Non-Squamous Epi Cells <5 /HPF (None Seen) 12/16/23 15:55 Urine Bacteria <20 /HPF (<20) 12/16/23 15:55 Urine Mucus Slight /HPF (None Seen) 12/16/23 15:55 Urine Culture Reflexed Not needed 12/16/23 15:55 Urine Total Protein Negative (Negative) 12/16/23 15:55 Smear Scan Ok (OK) 12/17/23 06:24 Weight: 175 lb Wound Present: No Closed Surgical Incision Present: No Negative Pressure Wound Therapy Present: No Physician Update: Labs reviewed and are stable. Left shoulder pain is better controlled with the [place] 5/325 mg and a left shoulder brace. Very motivated, SLUMS 28. Met 1/4 speech goals. Still very impulsive. Left homonous hemianopsia. Mod assist with gait. Independent with bed mobility. RW 25' with mod to max assistance. Left sided neglect. Summary: Patient's care plan and group home goals have been reviewed and revised as necessary. Please see the Rehabilitation Signature page for all necessary signatures.
[2023-12-24] MEDS: CALCIUM CARBONATE CHEW 500MG TAB PO PRN (19:53)
[2023-12-26] MEDS: GABAPENTIN 300 MG CAP PO SCH (15:07)
--- NOTE | 2023-12-27 05:06 | PN ---
Date of Progress Note: 12/26/2023 Time Of Service: 9:30 a.m. Chief Complaint: Ms. Herrera is somewhat disappointed in the slow recovery of her strength on the left side from her stroke affecting the right brain. Review of Systems: Mild myalgias and arthralgias. No rash. No depression. No other positives on the systems review. Physical Examination: Vital Signs: Blood pressure 124/79, pulse 84, respiratory rate 18, temperature 97.9. Oxygen saturation 95%. General: Ms. Herrera is resting comfortably. She is in no significant distress. HEENT: She appears normocephalic, atraumatic. Sclerae anicteric. Oropharynx is moist. Neck: Supple. Chest: Clear. Heart: Regular. Extremities: No significant edema or cyanosis. She does have, of course, dense paresis of the left upper more than lower extremity. Left nasolabial fold decrease, unchanged. Laboratory Studies: No new laboratory studies. X-ray/imaging: No new x-rays or imaging. Progress Made With Physical, Occupational, And Speech Therapy: Today, with physical therapy, she was able to ambulate forward 2 sets 8 feet each with a right handrail and backwards 2 sets 8 feet. Gait training, she did work with a left hand splint and the rolling walker. Left AFO, Justin wrap around the left ankle in place. She did report feeling very good about her therapy and she is completing the therapy. Regarding occupational therapy, she required minimum assistance for bathing. Wash and dry, right upper extremity, buttocks and back required contact guard assistance due to leaning to the left when doing ADLs. With her speech, divided attention skills completed using 2 letter cancellation task with 92% accuracy and moderate assistance. Assessment: Ms. Herrera is a 58-year-old patient in the rehabilitation unit with a lacunar infarct producing a left hemiparesis of the upper more than lower extremity, dysarthria, dysphagia and left homonymous hemianopsia. She has decreased mobility, decreased physical functioning, dry eyes, depression, insomnia, constipation, malnutrition, and alien limb syndrome from the left- sided stroke affecting the left body. Plan: She will continue with physical, occupational, and speech therapy as noted for 3.5 hours, 5 of 7 days. Will continue with [place] for pain, which she said is adequate for pain control. Lipitor for dyslipidemia. Zyrtec for allergies. Cymbalta for depression. Norvasc for blood pressure control. Eliquis for DVT prophylaxis. Gabapentin for neuropathic pain. Milk of magnesia for her constipation. Robaxin for muscle spasms. Melatonin for insomnia, Protonix for GE reflux. Ensure Enlive for malnutrition. LACIE/BOZENA Voice ID: [id number] Report ID: [id number] [facility]
--- NOTE | 2023-12-27 22:39 | PN ---
Date of Progress Note: 12/27/2023 Time Of Service: 1:20 p.m. Subjective: Ms. Herrera is feeling better with her therapy, still has significant paresis of left upper extremity from her stroke, but feels she is able to do more in terms of holding onto a walker w hen actually the arm is placed on the walker with a restrictor and she can mobilize somewhat better, doing transfers somewhat better, but still of course significantly weak in the left upper and lower e xtremities. She is to be discharged in the morning and is requesting a [place] prescription to go home . Prescriptions written in the office and family will come in the morning to pick that up. Review of Systems: Mild myalgias, arthralgias in the left side that is improved. Still has some pain in the left leg of course, which is a sign expected from a stroke. Physical Examination: Vital Signs: Blood pressure 129/73, pulse 82, respiratory rate 16, temperature 97.8, oxygen saturati on 95%. General: Ms. Herrera is sitting in a chair in between therapy sessions in the room. HEENT: She appears normocephalic, atraumatic. Neuro: She has left nasolabial fold decrease. She has good appropriate communication. No significa nt expressive aphasia, mild dysarthria. She still has dense paresis of left upper extremity, very di fficult to see any significant movement proximally and distally with the left hand and arm. Left low er extremity slightly improved in terms of strength, but still requires significant help to try to st and and transfer and balance. Laboratory Studies: No new laboratory studies. X-ray/imaging: No new x-rays or imaging. Progress Made With Physical, Occupational, And Speech Therapy: Today with her physical therapy, she did squat pivot transfers on the plinth table backwards and forwards. She was able to do gait traini ng, ambulating 8 feet forwards and 8 feet backwards on parallel bars. She did have the left hand spl int as noted. She did use a rolling walker with splint and left lower extremity AFO 2 sets of 10 fee t and 1 set of 50 feet with moderate assistance and lots of cuing required. With occupational therap y, required minimum assistance for toilet hygiene, contact guard assistance, transfers to the toilet, contact guard for wheelchair to edge of bed. The patient's daughter was there for family training a nd will be assisting her as she is home and of course she will continue with home health for therapy, physical, occupational, and speech. Assessment: Ms. Herrera is a 58-year-old patient with a lunar infarct involving right hemisphere p roducing dense left paresis of upper more than lower extremity, dysarthria, and some dysphagia. 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 Plan: 1.She will continue with physical, occupational, and speech therapy for 3.5 hours, 5 of 7 days. 2.[place] continued for pain. 3.Lipitor for dyslipidemia. 4.Zyrtec for her allergies. 5.Cymbalta for depression, Norvasc for hypertension, Eliquis for DVT prophylaxis, gabapentin for mary ropathic pain, milk of magnesia for constipation, Robaxin for muscle spasm, melatonin for insomnia, P rotonix for GE reflux, Ensure Enlive for malnutrition. 6.She will be discharged home in the morning and will continue therapy via Home Health. LACIE/BOZENA Voice ID: [id number] Report ID: [id number]
[2023-12-28 06:30] VITALS: BP 114/64; TEMP 97.4
== END 2023-12-28 12:15 | disposition home or self-care (01) | DRG 57 ==
LOC: 5TH 13:20
PROVIDERS: ADMIT Psychiatry & Neurology Neurology with Special Qualifications in Child Neurology; ATTEND Psychiatry & Neurology Neurology with Special Qualifications in Child Neurology
DX: I69.354 Hemiplegia and hemiparesis following cerebral infarction affecting left non-dominant side (principal); E46 Unspecified protein-calorie malnutrition; R41.4 Neurologic neglect syndrome; H53.462 Homonymous bilateral field defects, left side; I10 Essential (primary) hypertension; E78.5 Hyperlipidemia, unspecified; F17.200 Nicotine dependence, unspecified, uncomplicated; F32.A Depression, unspecified; G47.00 Insomnia, unspecified; I69.391 Dysphagia following cerebral infarction; E11.9 Type 2 diabetes mellitus without complications; R32 Unspecified urinary incontinence; Z96.652 Presence of left artificial knee joint; K59.00 Constipation, unspecified; I69.322 Dysarthria following cerebral infarction; Z68.26 Body mass index [BMI] 26.0-26.9, adult
CPT/HCPCS: 36415; 80048; 81001; 82040; 83036; 83735; 84134; 85025; 87086; 87088; 92523; 97112; 97116; 97124; 97129; 97161; 97165; 97530; 97542

== ENCOUNTER 2024-03-25 09:25 | Inpatient (IN) | payer OTHER ==
[2024-03-25 17:51] LABS: Specific Gravity 1.005 (1.005-1.030); Sqamous Epithelial <5 /HPF (None Seen); Urine Bacteria <20 /HPF (<20); Urine Bilirubin NEGATIVE (Negative); Urine Blood Trace (Negative); Urine Clarity Turbid (Clear); Urine Color Colorless (Yellow); Urine Crystals Unidentified Few /HPF (None Seen); Urine Culture Reflex Order NOT NEEDED; Urine Glucose NEGATIVE (Negative); Urine Ketones NEGATIVE (Negative); Urine Micro Reflex YN NO BILL MICROSCOPIC; Urine Nitrite NEGATIVE (Negative); Urine Protein NEGATIVE (Negative); Urine RBC <5 /HPF (None Seen); Urine Urobilinogen Normal (Normal); Urine WBC <5 /HPF (<5)
[2024-03-25] MEDS ORDERED: VALACYCLOVIR 500 MG TAB PO SCH (19:02)
[2024-03-25] MEDS: DULOXETINE 30 MG CAP PO SCH (20:39)
[2024-03-25] MEDS: APIXABAN 2.5 MG TABLET PO SCH (20:40)
[2024-03-25] MEDS: VALACYCLOVIR 500 MG TAB PO SCH (20:40)
[2024-03-25] MEDS: BACLOFEN 10 MG TAB PO SCH (20:40)
[2024-03-25] MEDS: MAGNESIUM OXIDE 400 MG TAB PO SCH (20:40)
[2024-03-25] MEDS: ATORVASTATIN 20 MG TAB PO SCH (20:40)
[2024-03-25] MEDS: TRAZODONE 50 MG TABLET PO SCH (20:40)
[2024-03-25] MEDS: LIDOCAINE VISCOUS 2% SOLN 15 ML UDC MM PRN (20:41)
--- NOTE | 2024-03-26 02:38 | HP ---
Date of Admission: 03/25/2024 Time Of Service: 1 p.m. Chief Complaint: "I need to become stronger and try to walk again." History Of Present Illness: Ms. Herrera is a 58-year-old patient with gastroesophageal reflux dise ase, prior stroke with left-sided paresis, left homonymous hemianopsia, dysphagia, cervicalgia, dysli pidemia, who had been completely independent, cooking, working, physically demanding job when she suf fered a stroke on October 09, 2023. She had completed multiple rounds of physical therapy. Most recent discharge from rehabilitation was on December 27 where she was independent with bed mobility, conta ct guard with wheelchair to commode transfer, xeq-zq-[id number] moderate assistance, ambulating about 8 fe et, minimum assistance for bathing, upper body dressing, lower body dressing. She did return home wi [facility] and eventually was able to transfer to outpatient therapy. However, she suffered a fa ll after [place] and the caregiver noted that she stayed in bed for about a week after. [facility] er and family noted significant decline after the fall. She did attempt to restart outpatient physic al therapy in March, but was turned away due to her limitations. At that point, her nurse practiti johanne and family physician recommended inpatient rehab for her to return to prior level of functioning and reduce risk of rehospitalization. Currently, maximum assistance required for transfers, sit-to- stand, and she is unable to ambulate. She is now admitted to the unit. Past Medical History: Depression, GERD, insomnia, stroke, hypertension, dyslipidemia, left shoulder pain, dysarthria, dysphagia, cervicalgia, left homonymous hemianopsia. Past Surgical History: Cholecystectomy, bile duct surgery with cholecystectomy, hysterectomy, left t otal knee arthroplasty. Social History: Smoked in the past. No alcohol, tobacco, or IV drug use currently. Allergies: NO KNOWN DRUG ALLERGIES. Medications: [place] 5/325 every 6 hours as needed, Norvasc 5 mg daily, Eliquis 2.5 mg twice daily, as pirin 81 mg daily, Lipitor 20 mg at bedtime, baclofen 5 mg at bedtime, duloxetine 30 mg twice daily, viscous lidocaine 15 mL t.i.d. as needed for cold sore on lip, magnesium oxide 400 mg twice daily, Pr otonix 40 mg daily, Senokot-S 2 at bedtime. She has Valtrex 500 mg 3 times daily, and trazodone 25 m g at bedtime. Family History: Noncontributory. Laboratory Studies: Blood work is currently on order. Urinalysis shows trace blood, turbid clarity urine. X-ray/imaging: No recent x-rays or imaging. Review of Systems: She does report some mild spasming in the left upper and lower extremity and some difficulty with res ting and sleeping and the pain in the sore lip area on the right. In addition, some slight difficult y with sleep, although she reported sleep has done better and bowel movements have been done fairly w ell. Mild pain. No other positives on the systems review. Current Level Of Functioning: Currently, setup assistance for eating and grooming, bathing is max as sist, mod assist for upper body dressing, maximal assistance for lower body dressing, donning and dof fing footwear, maximal assistance for toileting, wheelchair transfer maximum assistance, toilet trans ruiz maximum assistance, and stairs, not able to attempt at this point. She comprehends well and expr esses herself well. Rehab And Medical Assessment And Plan: Ms. Herrera is a 58-year-old patient in the rehabilitation unit with impairment category 01 stroke. Impairment group code is 01.1, left body involvement, right brain. Etiologic diagnosis, sequelae of stroke. Her comorbid conditions are depression, decreased mobility, decreased physical functioning, hypertension, dyslipidemia, of course stroke, left homonymo us hemianopsia, cervicalgia. Plan: 1.She will have physical, occupational, and speech therapy 3.5 hours, 5 of 7 days. 2.We will use Eliquis 2.5 mg twice daily for DVT prophylaxis, aspirin 81 mg daily for stroke risk re duction, Norvasc 5 mg daily for blood pressure management, for muscle spasms baclofen 5 mg at bedtime , duloxetine 30 mg twice daily for neuropathic pain, and [place] for severe breakthrough pain 5/325 susan ry 6 hours as needed. She has lidocaine patch applied to the shoulder on the left. She has magnesiu m oxide also for muscle spasms, Protonix for GE reflux, Senokot for constipation, trazodone for insom sophy, and the Valtrex for her cold sore breakout. The lidocaine viscous orally also for pain in the m outh. Comorbidities That Are Impacting Rehabilitation: She has significant paresis from stroke and homonym ous hemianopsia and is at high risk of ongoing falls. Fall precautions therefore will be adhered to strictly with gait belt and wheelchair following the patient as she tried attempts to ambulate. She has mild muscle spasms following stroke and is at risk of contractures at night. She will have a rol led towel for the hand and work on leg flexion and extension and will use an AFO to help reduce the p ointing effect of the left foot following stroke. Rehab Specific Plan: Ms. Herrera will have physical, occupational, and speech therapy for 3.5 hour s, 5 of 7 days to improve her ability to work on transfers from her bed to a wheelchair. Will use a sliding board if she is unable to stand and balance, but the goal is to use the right leg and arm and to be able to transfer towards independence and mobilized a wheelchair 250 feet with independence, a mbulate around 50 feet hospital distances with independence and attempt to go up and down steps at le ast 5 with modified independence or towards independence. Also she will work with speech to assess h er swallowing needs and work on cognitive issues and communication in addition to helping recall what she has learned in physical and occupational therapy. Ms. Herrera and her daughter have a good understanding of the process of admission to the inpatient rehabilitation unit and how she will benefit from physical, occupational, and speech therapy. She w ill have 24 hours a day, 7 days a week skilled rehabilitation nursing, daily physician evaluation and management, and social service evaluation for discharge planning, home equipment, followup, and to c ontin with therapy. If need be, additional help from the Hospitalist Service will be sought. Barriers To Discharge: Ms. Herrera does have significant stroke and high risk of falling, may requ catherine extended stay in hospital and may require 24 hours supervision to help reduce risk of additional falls. This may not be available at home and the patient may require an extended stay into skilled n ursing. Length Of Stay: Around 2 to 3 weeks. Disposition: Expected to be home with Home Health, continuing therapy and family at home helping. Prognosis: Good. Code Status: Full code. Rehab Specific Goals: 1.Become independent as much as possible with upper and lower body dressing, transferring from bed t o chair to toilet. 2.Transferring to a shower. 3.Mobilizing household distances independently. 4.Performing cognitive functioning independently. The above goals were reviewed with Ms. Herrera and she is in agreement. By signing this document, I acknowledge I personally performed a full physical examination with Ms. Regina calderon no later than 24 hours after her admission to the inpatient rehabilitation facility and dete rmined that she is able to tolerate the above course of treatment at an intensive level for a reasona ble period of time. A detailed individualized plan of care for her will be completed by hospital day 4 based on the preadmission screen, history and physical, and therapy evaluations. RAJEEV Voice ID: [id number]
[2024-03-26 07:03] LABS: Absolute Eosinophils 0.2 K/uL (0-0.5); Absolute Lymphocytes (CBC) 2.7 K/uL (0.7-4.9); Absolute Monocytes 0.7 K/uL (0.1-1.3); Absolute Neutrophil 3.2 K/uL (1.8-8.0); Basophils % 0.6 % (0-1.3); Eosinophils % 3.4 % (0-4.4); Hematocrit 50.9 % (36.0-45.0); Hemoglobin 17.1 g/dL (12.0-15.0); Lymphocytes % 39.5 % (15.3-44.8); MCH 34.2 pg (27.0-35.0); MCHC 33.7 g/dL (32.0-36.0); MCV 101.4 fL (80-100); MPV 9.2 fL (7.6-11.3); Monocytes % 10.7 % (3.3-12.3); Neutrophils % 45.8 % (41.7-73.7); Nucleated Red Blood Cells % 0.2 % (0-0); Platelets 281 thou/uL (152-406); RBC Red Blood Cell Count 5.01 M/uL (3.86-4.86); Red Cell Distribution Width 14.4 % (12.1-15.2)
[2024-03-26] MEDS: PANTOPRAZOLE 40MG TABLET PO SCH (07:15)
[2024-03-26] MEDS: HYDROCODONE/APAP 5/325 MG TAB PO PRN (07:15)
[2024-03-26] MEDS ORDERED: DULOXETINE 30 MG CAP PO SCH (08:00)
[2024-03-26 08:04] LABS: Albumin 3.4 g/dL (3.4-5.0); Anion Gap 8.7 mEq/L (5.0-15.0); Potassium 3.7 mEq/L (3.5-5.1)
[2024-03-26] MEDS: ASPIRIN EC 81 MG TAB PO SCH (09:19)
[2024-03-26] MEDS: AMLODIPINE 5 MG TAB PO SCH (09:20)
[2024-03-26 16:39] VITALS: BMI 25.7
[2024-03-26] MEDS: PAIN RELIEF TOP SCH (17:23)
[2024-03-26] MEDS: CALCIUM CARBONATE CHEW 500MG TAB PO PRN (20:52)
--- NOTE | 2024-03-26 23:26 | PN ---
Date of Progress Note: 03/26/2024 Time Of Service: 1:25 p.m. Subjective: Ms. Herrera is resting comfortably. She is happier with therapy so far and still has significant weakness on the left side, left hemiparesis and she has a left homonymous hemianopsia and still has difficulty with mobilization, transferring, and dressing. Objective: Some mild tightness in the muscles on her left upper and lower extremity, especially with mobilization and exercise. Otherwise, no fevers or chills, no rash, no psychiatric complaints. Physical Examination: Vital Signs: Blood pressure 121/72, pulse 73, respiratory rate 16, temperature 97.4, oxygen saturati on 94%. General: Ms. Herrera resting in bed in between therapy sessions. She appears normocephalic. Scle evan anicteric. Oropharynx moist. Neck: Supple. Chest: Clear. Heart: Regular. Extremities: No significant edema. She has similar to yesterday left hemiparesis, left homonymous h emianopsia, decreased sensation in left compared to right upper and lower extremity. Laboratory Studies: White blood cell count 7.4, hemoglobin 17.1, platelets 281. Sodium 140, potassi um 3.7, chloride 111, carbon dioxide 24, BUN 20, creatinine 0.82, glucose 119. Hemoglobin A1c 5.6, c alcium 9.2, magnesium 2.0, albumin 3.4, prealbumin 23.0. Urinalysis: Trace blood and turbid clarity , otherwise unremarkable. Urinalysis shows no colony forming units, no growth. X-ray/imaging: No new x-rays or imaging. Medications: [place] 5/325 every 6 hours as needed for severe pain; Norvasc 5 mg daily for hypertensio n; Eliquis 2.5 mg twice daily for DVT prophylaxis; aspirin 81 mg daily for stroke risk reduction; Lip itor 40 mg at bedtime, baclofen 5 mg at bedtime for muscle spasms; Tums 50 mg every 4 hours for GE re flux, which she did report some; duloxetine 30 mg twice daily for neuropathic pain and mood stabiliza tion. She has magnesium oxide 400 mg twice daily for muscle spasms, Protonix 40 mg daily for GE refl ux, Senokot-S 2 at bedtime for constipation, trazodone 25 mg at bedtime for insomnia, and she is now on Valtrex for breakout of herpes involving the mouth, that is a cold sore and that is improving, but slowly. Progress Made With Physical And Occupational Therapy: With physical therapy today, she ambulated 40 feet twice, 20 feet once, 25 feet once with moderate assistance using a rolling walker. She required maximal assistance for donning and doffing left upper extremity clothes on a platform. She did have as she mobilized. She mobilized wheelchair 125 feet twice with standby assistance for ob stacle negotiation and left-sided neglect. Performed kndodr-bw-ycy transfers with standby assistance , multiple uqm-mr-spcmf transfers required moderate assistance. With occupational therapy, required minimum assistance for toileting, pull up pants and down on the left side especially due to impaired dynamic balance and left hemiparesis. Lwi-qb-pwmzw transfers, contact guard assistance. Contact gua rd assistance with toilet transfers and verbal cues. She did have slow pace of activity. Assessment: Ms. Herrera is a 58-year-old patient in the rehabilitation unit with sequelae of strok e. She has noted the left-sided involvement with weakness, neglect, and visual deficits. She has de creased mobility, decreased physical functioning. She has cold sore outbreak and on Valtrex. Insomn ia treated with trazodone, GE reflux with Protonix and Tums. She did report some heartburn after gurjit ls and lying down. Continue her Cymbalta for depression and neuropathic pain modulation, magnesium a nd baclofen for nighttime muscle spasms, Lipitor for dyslipidemia, and aspirin for stroke risk reduct ion along with Norvasc for hypertension, [place] for severe pain. Of course, she will continue with ph ysical, occupational, and speech therapy 3-1/2 hours, 5 of 7 days. LB/MODL Voice ID: [id number] Report ID: [id number]
[2024-03-27] MEDS: AMLODIPINE 2.5 MG TAB PO SCH (19:25)
[2024-03-27] MEDS: DOCUSATE NA/SENNA CONC 1 TAB PO PRN (19:31)
--- NOTE | 2024-03-28 01:07 | PN ---
Date of Progress Note: 03/27/2024 Time Of Service: 1:30 p.m. Subjective: Ms. Herrera is in bed in between therapy sessions. She has no new deficits. Still re ports significant weakness in the left upper and lower extremities where she has hemiparesis and the left homonymous hemianopsia has not changed. Review of Systems: Still has some tightness in muscles on the left upper and lower extremities and at nighttime after sh e finished her therapy. She otherwise denies fevers, chills, nausea, vomiting. No rash. Physical Examination: Vital Signs: Blood pressure 133/77, pulse 74, respiratory rate of 16, temperature 97.9, oxygen satur ation 92%. General: Ms. Herrera is lying comfortably. Extremities: She still has significant paresis of left upper and lower extremities. She has somewha t contracted left fist and did report at night there was some pain in the middle of the palm, likely from her fingers squeezing tightly. She will have a rolled towel kept in the hand overnight and left hand brace to reduce the compression of the palm with the fingers and nails, which occurred after he r chronic stroke. She does have also difficulty extending the left arm related to her stroke. Laboratory Studies: No new laboratory studies. X-ray/imaging: No new x-rays or imaging. Medications: Medications have been reviewed and she has no new medications added. Progress Made With Physical And Occupational Therapy: Today with physical therapy, patient did perfo rm rphbfx-yf-djd transfer with minimum assistance. Multiple wzp-kz-qucpu transfers with moderate ass istance. Stand pivot transfers with moderate assistance. She did ambulate with a rolling walker 40 feet twice and 30 feet once with moderate assistance. Maximal assistance for donning and doffing lef t upper extremity on platform. Mobilized wheelchair 120 feet with standby assistance for obstacle ne gotiation. Blood pressure was 121/73 while performing activities. With occupational therapy, modera te assistance for donning and doffing socks, independent with the right side, total assist with the l eft side. Moderate assistance for donning shoes on both sides. In terms of therapy, she did complet e 2 laps around the floor with verbal cues, adaptive strategies to overcome her neglect and the laps are 250 feet. She is not receiving speech therapy. Assessment: Ms. Herrera is a 58-year-old patient with sequela of stroke. She has decreased mobili ty, decreased physical functioning, left upper and lower extremities weakness. She has significant i ncreased tone in the left upper extremity. Pain in the left wrist, especially if squeezing her hand tightly at night. Plan: She will continue with physical, occupational therapy. Continue with Valtrex, which is helpfu l for the ulcer outbreak on the lip. Continue trazodone for insomnia, Senokot for constipation, Prot salbador for GE reflux, magnesium oxide for muscle spasms, Cymbalta for neuropathic pain and help with mo od stabilization. She has Tums for GE reflux and heartburn. She has Lipitor for dyslipidemia, baclo fen for muscle spasms at night, aspirin for stroke risk reduction, Eliquis for DVT risk reduction, an d Norvasc now 2.5 mg twice daily to help with peak trough affects of blood pressure management. She does have [place] for moderate to severe pain at 5/325 every 6 hours as needed. LB/MODL Voice ID: [id number] Report ID: [id number]
[2024-03-28 05:53] LABS: Absolute Eosinophils 0.2 K/uL (0-0.5); Absolute Lymphocytes (CBC) 3.2 K/uL (0.7-4.9); Absolute Monocytes 0.6 K/uL (0.1-1.3); Absolute Neutrophil 2.3 K/uL (1.8-8.0); Basophils % 0.8 % (0-1.3); Eosinophils % 3.3 % (0-4.4); Hematocrit 49.3 % (36.0-45.0); Hemoglobin 16.6 g/dL (12.0-15.0); MCH 33.9 pg (27.0-35.0); MCHC 33.7 g/dL (32.0-36.0); MCV 100.5 fL (80-100); MPV 9.3 fL (7.6-11.3); Monocytes % 9.2 % (3.3-12.3); Neutrophils % 36.7 % (41.7-73.7); Nucleated Red Blood Cells % 0.1 % (0-0); Platelets 274 thou/uL (152-406); Red Cell Distribution Width 14.8 % (12.1-15.2)
[2024-03-28 06:13] LABS: Albumin 3.1 g/dL (3.4-5.0); Anion Gap 7.6 mEq/L (5.0-15.0); Magnesium 2.2 mg/dL (1.6-2.4); Potassium 3.6 mEq/L (3.5-5.1); Prealbumin 20.9 mg/dL (20-40)
--- NOTE | 2024-03-28 22:32 | PN ---
Date of Progress Note: 03/28/2024 Time Of Service: 1:20 p.m. Subjective: Ms. Herrera is resting in bed. She is very happy so far about her ability to improve her strength, coordination, especially using the left side, which is the side affected by stroke. Chantelle price has no new complaints. Review of Systems: Again, some mild tightness in left upper and lower extremity and the left shoulder where she has a br mauro holding shoulder after stroke and still having some spasms in the legs, especially at night. She said it comes about every 30 seconds and has made it difficult for her to go to sleep at night. Med ications have been adjusted to address this. Physical Examination: Vital Signs: Blood pressure is 119/75, pulse 74, respiratory rate 16, temperature 97.9, oxygen satur ation 93%. General: Ms. Herrera is lying in bed. HEENT: She is normocephalic, atraumatic. She does have the left shoulder brace putting the shoulder in. Otherwise, atraumatic. Sclerae anicteric. Oropharynx pink, moist. Neck: Supple. Chest: Clear. Neuro: She does have tzsw-tg-dohusrvk weakness ongoing in the left upper and lower extremity. Mild stiffness to the muscles with increased tone. Laboratory Studies: White blood cell count 6.4, hemoglobin 16.6, platelets 274. Sodium 139, potassi um 3.6, chloride 110, carbon dioxide 25, BUN 20, creatinine 0.85, glucose 111, calcium 9.2, magnesium 2.2, prealbumin 20.9, and albumin 3.1. X-ray/imaging: No new x-rays or imaging. Medications: Today, she has Norvasc 2.5 mg twice daily, [place] 5/325 every 6 hours as needed, Eliquis 2.5 mg twice daily, aspirin 81 mg daily, Lipitor 20 mg at bedtime, baclofen 5 mg daily. She has Sheila s for reflux, Cymbalta 30 mg twice daily. She has magnesium oxide 400 mg twice daily, Protonix 40 mg daily, Senokot-S 2 at bedtime, trazodone 25 mg at bedtime, and Valtrex for her cold sore outbreak is 500 mg 3 times daily. Progress Made With Physical And Occupational Therapy: With physical therapy today, she was able to p erform eaewoh-pz-rre transfers with minimum assistance. Multiple feq-ff-ocdqn transfers done with mo derate to minimum assistance required. She did ambulate with a rolling walker 20 feet, 55 feet twice , and 30 feet with moderate assistance. She donned and doffed her left upper extremity brace with mo derate assistance. She mobilized a wheelchair 120 feet twice with standby assistance for obstacle av oidance. With occupational therapy, minimum assistance for uvq-ji-irybg transfers and wheelchair to edge of bed transfer and rolling the wheelchair from the room to the gym. She did run into objects 3 times and to be assisted to correct her directional control. Assessment: Ms. Herrera is a 58-year-old patient in rehabilitation unit with sequela of stroke aff ecting the left side and there are some muscle spasms there. She has decreased mobility, decreased p hysical functioning. She has cold sore outbreak and that is treated with Valtrex, trazodone for depr ession, Senokot for constipation, Protonix for GE reflux. She has magnesium oxide for muscle spasms, Cymbalta also helpful for that, baclofen added at nighttime for muscle spasms, Lipitor for dyslipide luzma, aspirin for stroke risk reduction, Eliquis for DVT risk reduction, and Norvasc for hypertension. Plan: She will continue with physical and occupational therapy 3 hours a day, 5 of 7 days. Continue with comorbid condition medications which have been noted. LACIE/BOZENA Voice ID: [id number] Report ID: [id number]
--- NOTE | 2024-03-29 07:39 | RAD REPORT ---
EXAM: XR of the abdomen HISTORY: Abdominal pain constipation COMPARISON: None FINDINGS: XR of the abdomen shows a nonspecific, nonobstructive bowel gas pattern. Moderate stool is retained throughout the colon. No suspicious calcifications are seen. The bones are unremarkable. Cholecystectomy clips. IMPRESSION: Moderate constipation.
--- NOTE | 2024-03-29 14:10 | P.RH.PN ---
Estimated Length of Stay: 13 Expected Discharge Date: 04/09/24 Discharge Disposition Plan: Home Family Support: Yes Jail Goal: Mobility, Transfers, Self Care Vital Signs: Last Vital Signs Temp 97.4 F 03/29/24 08:00 Pulse 67 03/29/24 08:00 Resp 14 03/29/24 08:00 BP 118/68 03/29/24 08:00 Pulse Ox 95 03/29/24 08:00 Laboratory: Laboratory Last Values WBC 6.40 thou/uL (4.3-10.9) 03/28/24 05:25 RBC 4.90 M/uL (3.86-4.86) H 03/28/24 05:25 Hgb 16.6 g/dL (12.0-15.0) H 03/28/24 05:25 Hct 49.3 % (36.0-45.0) H 03/28/24 05:25 MCV 100.5 fL (80-100) H 03/28/24 05:25 MCH 33.9 pg (27.0-35.0) 03/28/24 05:25 MCHC 33.7 g/dL (32.0-36.0) 03/28/24 05:25 RDW 14.8 % (12.1-15.2) 03/28/24 05:25 Plt Count 274 thou/uL (152-406) 03/28/24 05:25 MPV 9.3 fL (7.6-11.3) 03/28/24 05:25 Neutrophils % 36.7 % (41.7-73.7) L 03/28/24 05:25 Lymphocytes % 50.0 % (15.3-44.8) H 03/28/24 05:25 Monocytes % 9.2 % (3.3-12.3) 03/28/24 05:25 Eosinophils % 3.3 % (0-4.4) 03/28/24 05:25 Basophils % 0.8 % (0-1.3) 03/28/24 05:25 Absolute Neutrophils 2.3 K/uL (1.8-8.0) 03/28/24 05:25 Absolute Lymphocytes 3.2 K/uL (0.7-4.9) 03/28/24 05:25 Absolute Monocytes 0.6 K/uL (0.1-1.3) 03/28/24 05:25 Absolute Eosinophils 0.2 K/uL (0-0.5) 03/28/24 05:25 Absolute Basophils 0.0 K/uL (0-0.5) 03/28/24 05:25 Sodium 139 mEq/L (136-145) 03/28/24 05:25 Potassium 3.6 mEq/L (3.5-5.1) 03/28/24 05:25 Chloride 110 mEq/L (98-107) H 03/28/24 05:25 Carbon Dioxide 25 mEq/L (21-32) 03/28/24 05:25 Anion Gap 7.6 mEq/L (5.0-15.0) 03/28/24 05:25 BUN 20 mg/dL (7-18) H 03/28/24 05:25 Creatinine 0.85 mg/dL (0.55-1.02) 03/28/24 05:25 Est GFR (CKD-EPI) 78 ml/min (=/>90) L 03/28/24 05:25 Glucose 111 mg/dL (74-106) H 03/28/24 05:25 Hemoglobin A1c 5.6 % (4.2-6.3) 03/26/24 06:17 Calcium 9.2 mg/dL (8.5-10.1) 03/28/24 05:25 Magnesium 2.2 mg/dL (1.6-2.4) 03/28/24 05:25 Albumin 3.1 g/dL (3.4-5.0) L 03/28/24 05:25 Prealbumin 20.9 mg/dL (20-40) 03/28/24 05:25 Urine Color Colorless (Yellow) 03/25/24 16:35 Urine Clarity Turbid (Clear) H 03/25/24 16:35 Urine pH 6.0 (5.0-7.0) 03/25/24 16:35 Ur Specific [place] 1.005 (1.005-1.030) 03/25/24 16:35 Glucose (UA)(Auto) Negative (Negative) 03/25/24 16:35 Urine Ketones Negative (Negative) 03/25/24 16:35 Urine Blood Trace (Negative) H 03/25/24 16:35 Urine Nitrite Negative (Negative) 03/25/24 16:35 Urine Bilirubin Negative (Negative) 03/25/24 16:35 Urine Urobilinogen Normal (Normal) 03/25/24 16:35 Ur Leukocyte Esterase Negative [place]/uL (Negative) 03/25/24 16:35 Urine RBC <5 /HPF (None Seen) 03/25/24 16:35 Urine WBC <5 /HPF (<5) 03/25/24 16:35 Ur Squamous Epith Cells <5 /HPF (None Seen) 03/25/24 16:35 Unidentified Crystals Few /HPF (None Seen) 03/25/24 16:35 Urine Bacteria <20 /HPF (<20) 03/25/24 16:35 Urine Culture Reflexed Not needed 03/25/24 16:35 Urine Total Protein Negative (Negative) 03/25/24 16:35 Weight: 169 lb Wound Present: Yes Negative Pressure Wound Therapy Present: No Physician Update: Mod assist , STS, WC 25', RW 55', neglect. With OT min assist bathing, dynamic balance, partial assist for lower body dressing. Labs reviewed and are stable. Summary: Patient's care plan and terminal block assembler goals have been reviewed and revised as necessary. Please see the Rehabilitation Signature page for all necessary signatures.
[2024-03-30] MEDS: BISACODYL 10 MG RECTAL SUPP PR PRN (04:00)
--- NOTE | 2024-04-01 07:41 | P.CNS ---
Date of Consult: 04/01/24 Reason for Consult: Painful toenail Chief Complaint: Left great toe pain Allergies No Known Allergies Allergy (Verified 03/25/24 09:59) Home Medications: Aspirin Chewable [Aspirin Chewable*] 81 mg PO DAILY 12/16/23 Trazodone [Desyrel*] 50 mg PO BEDTIME PRN 12/16/23 Amlodipine [Norvasc] 5 mg PO DAILY 03/25/24 Atorvastatin Calcium 20 mg PO BEDTIME 03/25/24 Duloxetine HCl [Cymbalta] 30 mg PO DAILY 03/25/24 Pantoprazole [Protonix Tab*] 40 mg PO BREAKFAST 03/25/24 - Past Medical/Surgical History Diabetic: No -: Hypertension -: Hyperlipidemia -: Hysterectomy -: Cholecystectomy -: Hemorrhoidectomy Psychosocial/ Personal History: Patient employed as a deputy, lives alone - Social History Smoking Status: Current every day smoker Alcohol use: No CD- Drugs: No Caffeine use: No Place of Residence: Home Review of Systems 10-point ROS is otherwise unremarkable Physical Examination Temp Pulse Resp BP Pulse Ox 98.3 F 77 16 128/70 95 04/01/24 07:37 04/01/24 07:37 04/01/24 07:37 04/01/24 07:37 04/01/24 07:37 General: Alert, In no apparent distress, Oriented x3 Cardiovascular: No edema, Normal pulses Capillary refill: <2 Seconds Musculoskeletal: No clubbing, No swelling, No contractures, No erythema, No tenderness, No warmth Integumentary: No rashes, No breakdown, No significant lesion, No tenderness/swelling, No erythema, No warmth, No cyanosis, Other (Incurvation of the medial and lateral border left hallux nail with pain on palpation, no erythema, no edema, no drainage noted) Neurological: Sensation intact - Problems (1) Onychocryptosis Current Visit: Yes Status: Acute Conclusions/Impression: Slant back procedure performed at bedside medial and lateral border left hallux nail. Patient to follow up outpatient if problems persist
[2024-04-01] MEDS: FLUTICASONE 50MCG NASAL SPRAY NAS SCH (20:02)
[2024-04-01] MEDS: CARBOXYMETHYLCELLULOSE SODIUM 0.5% 15 ML OPTH SCH (20:03)
--- NOTE | 2024-04-01 22:02 | PN ---
Date of Progress Note: 04/01/2024 Time Of Service: 1:20 p.m. Subjective: Ms. Herrera is very happy that Dr. Benz did work on her toe and did toenail debrideme nt at bedside. Also, however, with her ability to improve strength, coordination, balance involving the left upper and lower extremity. No new complaints. Review of Systems: She does have the shoulder brace in place and there is mild pain and spasm on that side, but otherwis e she has been doing pretty well with the spasms. Previously, they were coming every 30 seconds prio r to several nights ago. Physical Examination: Vital Signs: Blood pressure 128/70, pulse 77, respiratory rate 16, temperature 98.3, oxygen saturati on 95%. General: Ms. Herrera is lying in bed. She is happy today. She has no complaints. HEENT: She is normocephalic, atraumatic. Sclerae anicteric. Oropharynx pink, moist. Neck: Supple. Chest: Clear. Neuro: She still has significant left upper more than lower extremity paresis. Some mild dysarthria as well. Laboratory Studies: No new laboratory studies. X-ray/imaging: No new x-rays or imaging. Of note on consultation, she saw Dr. Ulisses Benz and had debridement of toenails at the bedside. Progress Made With Physical And Occupational Therapy: Today with physical therapy, she ambulated 80 feet twice with minimum assistance. She also needed minimal assistance for donning and doffing of le ft upper extremity . In addition, with physical therapy, she ambulated another 50 feet wit h a platform walker on the left requiring minimum assistance and another 100 feet again requiring min imum assistance and propelled a wheelchair 110 feet with supervision. With occupational therapy, angelic f-propelled a wheelchair from the room to the gym with verbal cues and scanning to prevent rubbing at objects on the left where she has the left visual field deficit. Assessment: Ms. Herrera is a 58-year-old patient in rehabilitation unit with sequela of stroke aff ecting the left side. She has some spasms in the left upper and lower extremity. She has decreased mobility, decreased physical functioning in addition to dyslipidemia, hypertension, muscle spasm, ins omnia, and constipation. Plan: She will continue with physical and occupational therapy 3 hours a day, 5 of 7 days. Continue trazodone for insomnia, Senokot for constipation, Protonix for GE reflux, magnesium oxide for muscle spasms. She also has Flonase nasal spray for mild she says dry nose. She did report some mild brie f episodes of nosebleeds, but no deanna blood nose, but that happens maybe once or twice ac tually in a few days. Hemoglobin and hematocrit from previously was also stable. She did also repor t some mild dry eyes and she has Artificial Tears now on board. She has Eliquis 2.5 mg twice daily f or DVT prophylaxis, Norvasc for blood pressure management, and aspirin for stroke risk reduction and of note in terms of plan, continuing again physical and occupational therapy and all medic ations as noted above. RAJEEV Voice ID: [id number] Report ID: [id number]
[2024-04-02] MEDS: PANTOPRAZOLE 40MG TABLET PO SCH (08:11)
[2024-04-03] MEDS ORDERED: DOCUSATE NA/SENNA CONC 1 TAB ONE (00:01)
--- NOTE | 2024-04-03 18:01 | PN ---
Date of Progress Note: 04/03/2024 Time Of Service: 1:20 p.m. Subjective: Ms. Herrera is lying in bed. She is observing the outside nice bright jaylene day. She has no acute complaints, feeling a bit better, although still having some spasms in the extremity on the left which is the chronically weak side. She has otherwise no new complaints. Objective: She denies any fevers or chills. No significant myalgias, arthralgias, rash. No other c omplaints. Physical Examination: Vital Signs: Blood pressure 140/94, pulse of 81, respiratory rate 16, temperature 97.2, oxygen satur ation 98%. General: Again, Ms. Herrera is in bed, completed therapy sessions for today. HEENT: She is normocephalic, atraumatic. Sclerae anicteric. Oropharynx pink and moist. Neck: Supple. Chest: Clear. Neuro: The left upper extremity is significantly weak and had been chronically weak. No change ther e in strength. Lower extremity somewhat stronger than the upper, but still significantly weak. Othe rwise, no new findings on examination. Laboratory Studies: No new laboratory studies. X-ray/imaging: No new x-rays or imaging. Medications: She does have Norvasc twice daily for blood pressure control 2.5 mg. She has Senokot-S for constipation, Protonix for reflux, magnesium oxide for muscle spasms, Flonase for nasal spray. She has duloxetine for neuropathic pain and managing depression. She has baclofen at night for muscl e spasms, Lipitor for dyslipidemia, aspirin for stroke risk reduction, Eliquis for DVT risk reduction , and [place] for pain. Progress Made With Physical And Occupational Therapy: With physical therapy today, she ambulated wit h a quad cane covering 50 feet with minimum assistance. She did multiple roi-yh-yihzv with minimum a ssistance. She did require cuing while ambulating with a quad cane. She also required a couple of r est breaks for the right knee. She did have more stability with a front wheel walker. With occupati onal therapy, she did tolerate the left scapular mobilization with range of motion in the left upper extremity to minimize the risk of contractures worsening. She did have a hot pack placed on the left shoulder and left arm kept in a sling. Assessment: Ms. Herrera is a 58-year-old patient in rehabilitation unit with sequelae of stroke af fecting left upper and lower extremity. She has significant paresis of that left arm and some mild d ysarthria. She also has decreased mobility, decreased physical functioning, hypertension, muscle spa sms, dyslipidemia, stroke risk, anxiety, depression, GE reflux, insomnia, and constipation. Plan: She will continue with physical and occupational therapy 3 hours a day, 5 of 7 days. She will continue with all of her comorbid condition medications which have been listed. She is set for disc harge on Monday, today is Monday. LACIE/BOZENA Voice ID: [id number] Report ID: [id number]
[2024-04-03] MEDS: DOCUSATE NA/SENNA CONC 1 TAB PO SCH (19:21)
[2024-04-04 06:17] LABS: Absolute Basophils 0.1 K/uL (0-0.5); Absolute Eosinophils 0.2 K/uL (0-0.5); Absolute Monocytes 0.6 K/uL (0.1-1.3); Absolute Neutrophil 2.2 K/uL (1.8-8.0); Basophils % 0.9 % (0-1.3); Eosinophils % 3.3 % (0-4.4); Hematocrit 47.6 % (36.0-45.0); Hemoglobin 16.4 g/dL (12.0-15.0); Lymphocytes % 49.4 % (15.3-44.8); MCH 34.6 pg (27.0-35.0); MCHC 34.3 g/dL (32.0-36.0); MCV 100.8 fL (80-100); MPV 9.2 fL (7.6-11.3); Monocytes % 10.3 % (3.3-12.3); Neutrophils % 36.1 % (41.7-73.7); Nucleated Red Blood Cells % 0.1 % (0-0); Platelets 259 thou/uL (152-406); RBC Red Blood Cell Count 4.73 M/uL (3.86-4.86); Red Cell Distribution Width 14.7 % (12.1-15.2)
[2024-04-04 06:30] LABS: Albumin 3.1 g/dL (3.4-5.0); Anion Gap 7.9 mEq/L (5.0-15.0); Magnesium 2.1 mg/dL (1.6-2.4); Potassium 3.9 mEq/L (3.5-5.1); Prealbumin 24.1 mg/dL (20-40)
--- NOTE | 2024-04-04 23:02 | PN ---
Date of Progress Note: 04/04/2024 Time Of Service: 1:20 p.m. Subjective: Ms. Herrera is smiling in bed. States she is sleeping better, moving better, and has less pain in the left arm. There is a left shoulder harness in place and muscle spasm still present, but it is somewhat better, but she still has significant decreased range of motion in the left arm f ollowing the chronic stroke and no significant improvement in functional utility in the left upper ex tremity. There is more function in the left lower extremity. Objective: No fevers, chills, nausea, vomiting, and again mild shoulder pain, but that is improved w ith the pain patch and the brace in the shoulder. Otherwise, no other complaints on the systems revi ew. Physical Examination: Vital Signs: Blood pressure 125/73, pulse of 88, respiratory rate of 16, temperature 98, oxygen satu ration 95%. General: Ms. Herrera is sitting in bed. She is in good spirits. HEENT: Normocephalic, atraumatic. Sclerae are anicteric. Oropharynx pink and moist. Neck: Supple. Chest: Clear. Neurological: Dense paresis in left upper extremity, unchanged. Some increased tone in left upper e xtremity and some mild pain in palpation of shoulder. She also has moderate weakness of the left low er extremity, but is doing much better with that. Laboratory Studies: White blood cell count 6.1, hemoglobin 16.4, platelets 259. Sodium 141, potassi um 3.9, chloride 110, carbon dioxide 27, BUN 24, creatinine 0.82, glucose 113. Calcium 9.2, magnesiu m 2.1, albumin 3.1, prealbumin 24.1. X-ray/imaging: No new x-rays or imaging. Medications: Continued, unchanged. She has Senokot 2 times at night for constipation and I will con tinue Flonase for her allergies and she is doing well with that. No more nosebleeds, which has occur red several days ago. Progress Made With Physical, Occupational, And Speech Therapy: Today with her physical therapy, she did perform supine to sit transfers with minimum assistance, multiple qdx-mc-ztmnl transfers with mod erate contact guard assistance, novsj-nv-yahnr transfers with moderate contact guard assistance. She did ambulate with a rolling walker 80 feet and 60 feet with minimal assistance. She had increased t one again, of course, in the left upper extremity. There is some pain making difficult to grab the p latform walker as the arm did not easily extend out and it is her left arm because of flexion at the elbow. Wheelchair mobilization, she covered 120 feet twice with standby assistance. Working on obst acle avoidance and left-sided neglect. With occupational therapy, required contact guard assistance for ckh-ay-mwyfn transfer and toilet transfers using grab bars. Minimum assist required for toilet h ygiene, pulling up and down hands on the left side and she work with her right upper extremity with 4 pounds dumbbell weights to improve strength. Assessment: Ms. Herrera is a 58-year-old patient in the rehabilitation unit with sequelae of strok e. She has decreased mobility, decreased physical functioning, constipation, insomnia, left shoulder pain from a chronic stroke, dyslipidemia, GE reflux, dry eyes, nosebleed that has not recurred, hype rtension. Plan: She will continue with physical and occupational therapy and her comorbid condition medication s, which have been noted will be continued unchanged. The patient is looking forward for discharge t he weekend and she will continue therapy and continue to improve. LB/MODL Voice ID: [id number] Report ID: [id number]
--- NOTE | 2024-04-05 14:35 | P.RH.PN ---
Estimated Length of Stay: 16 Expected Discharge Date: 04/16/24 Discharge Disposition Plan: Home Family Support: Yes Longterm Goal: Mobility, Transfers, Self Care Vital Signs: Last Vital Signs Temp 97.5 F 04/05/24 08:00 Pulse 79 04/05/24 08:18 Resp 14 04/05/24 08:00 BP 131/75 04/05/24 08:18 Pulse Ox 95 04/05/24 08:00 Laboratory: Laboratory Last Values WBC 6.10 thou/uL (4.3-10.9) 04/04/24 05:43 RBC 4.73 M/uL (3.86-4.86) 04/04/24 05:43 Hgb 16.4 g/dL (12.0-15.0) H 04/04/24 05:43 Hct 47.6 % (36.0-45.0) H 04/04/24 05:43 MCV 100.8 fL (80-100) H 04/04/24 05:43 MCH 34.6 pg (27.0-35.0) 04/04/24 05:43 MCHC 34.3 g/dL (32.0-36.0) 04/04/24 05:43 RDW 14.7 % (12.1-15.2) 04/04/24 05:43 Plt Count 259 thou/uL (152-406) 04/04/24 05:43 MPV 9.2 fL (7.6-11.3) 04/04/24 05:43 Neutrophils % 36.1 % (41.7-73.7) L 04/04/24 05:43 Lymphocytes % 49.4 % (15.3-44.8) H 04/04/24 05:43 Monocytes % 10.3 % (3.3-12.3) 04/04/24 05:43 Eosinophils % 3.3 % (0-4.4) 04/04/24 05:43 Basophils % 0.9 % (0-1.3) 04/04/24 05:43 Absolute Neutrophils 2.2 K/uL (1.8-8.0) 04/04/24 05:43 Absolute Lymphocytes 3.0 K/uL (0.7-4.9) 04/04/24 05:43 Absolute Monocytes 0.6 K/uL (0.1-1.3) 04/04/24 05:43 Absolute Eosinophils 0.2 K/uL (0-0.5) 04/04/24 05:43 Absolute Basophils 0.1 K/uL (0-0.5) 04/04/24 05:43 Sodium 141 mEq/L (136-145) 04/04/24 05:43 Potassium 3.9 mEq/L (3.5-5.1) 04/04/24 05:43 Chloride 110 mEq/L (98-107) H 04/04/24 05:43 Carbon Dioxide 27 mEq/L (21-32) 04/04/24 05:43 Anion Gap 7.9 mEq/L (5.0-15.0) 04/04/24 05:43 BUN 24 mg/dL (7-18) H 04/04/24 05:43 Creatinine 0.82 mg/dL (0.55-1.02) 04/04/24 05:43 Est GFR (CKD-EPI) 82 ml/min (=/>90) L 04/04/24 05:43 Glucose 113 mg/dL (74-106) H 04/04/24 05:43 Hemoglobin A1c 5.6 % (4.2-6.3) 03/26/24 06:17 Calcium 9.2 mg/dL (8.5-10.1) 04/04/24 05:43 Magnesium 2.1 mg/dL (1.6-2.4) 04/04/24 05:43 Albumin 3.1 g/dL (3.4-5.0) L 04/04/24 05:43 Prealbumin 24.1 mg/dL (20-40) 04/04/24 05:43 Urine Color Colorless (Yellow) 03/25/24 16:35 Urine Clarity Turbid (Clear) H 03/25/24 16:35 Urine pH 6.0 (5.0-7.0) 03/25/24 16:35 Ur Specific [place] 1.005 (1.005-1.030) 03/25/24 16:35 Glucose (UA)(Auto) Negative (Negative) 03/25/24 16:35 Urine Ketones Negative (Negative) 03/25/24 16:35 Urine Blood Trace (Negative) H 03/25/24 16:35 Urine Nitrite Negative (Negative) 03/25/24 16:35 Urine Bilirubin Negative (Negative) 03/25/24 16:35 Urine Urobilinogen Normal (Normal) 03/25/24 16:35 Ur Leukocyte Esterase Negative [place]unice/uL (Negative) 03/25/24 16:35 Urine RBC <5 /HPF (None Seen) 03/25/24 16:35 Urine WBC <5 /HPF (<5) 03/25/24 16:35 Ur Squamous Epith Cells <5 /HPF (None Seen) 03/25/24 16:35 Unidentified Crystals Few /HPF (None Seen) 03/25/24 16:35 Urine Bacteria <20 /HPF (<20) 03/25/24 16:35 Urine Culture Reflexed Not needed 03/25/24 16:35 Urine Total Protein Negative (Negative) 03/25/24 16:35 Weight: 169 lb Wound Present: No Closed Surgical Incision Present: No Negative Pressure Wound Therapy Present: No Physician Update: Met 3/3 STG and 1 LTG. Mod assist for pivot transfers. RW 100' with min assist. Met all OT STGa and 5/6 LTG. She is CGA with toileting. Summary: Patient's care plan and terminal system operator goals have been reviewed and revised as necessary. Please see the Rehabilitation Signature page for all necessary signatures.
[2024-04-08] MEDS ORDERED: LORAZEPAM 0.5 MG TABLET PO PRN (21:59)
[2024-04-08] MEDS: BACLOFEN 10 MG TAB PO ONE (22:10)
--- NOTE | 2024-04-09 00:07 | PN ---
Date of Progress Note: 04/08/2024 Time Of Service: 1 p.m. Subjective: Ms. Herrera is mobilizing on the unit. She is very happy, smiling, saying that pain i n the left arm, which is the weak side from stroke is nicely managed. She has no new complaints rega rding that and she is happy so far and ready for her discharge in the morning. Objective: No fevers, chills, nausea, vomiting. Mild myalgias and arthralgias in the left upper ext remity proximally and distally. Physical Examination: Vital Signs: Blood pressure 117/70, pulse of 85, respiratory rate 16, temperature 97.8, oxygen satur ation 94%. General: Ms. Herrera is resting comfortably in a chair. She is mobilizing. HEENT: She is normocephalic, atraumatic. Sclerae anicteric. Oropharynx pink, moist. Neck: Supple. Chest: Clear. Extremities: She has significant paresis of the left upper extremity, which is chronic. There are s ome contractures noted in the left hand and the left shoulder. She has a brace pulling it into the s houlder. No new findings. Laboratory Studies: No new laboratory studies. X-ray/imaging: No new x-rays or imaging. Medications: Have been reviewed and are unchanged. Progress Made With Physical And Occupational Therapy: With physical therapy today, she did perform m ultiple yzohti-nh-myy transfers with minimum assistance, multiple vki-mw-stbxp transfers with moderat e assistance and verbal cues, stand to pivot transfers with yrpwxgxk-cc-ccljljw assistance. She ambu lated with a left platform rolling walker 75 feet twice and 55 feet 3 times with sbirkotg-hj-qitrztm assistance. Did have some knee pain today and has some impulsivity and medications were adjusted to help with the right knee pain, which does need replacement. She already has left total knee replacem ent. With occupational therapy, minimum assistance in terms of sit to stand, requiring verbal cues. She practiced functional mobility by pushing a wheelchair, aiming to stay in midline and required cu es to scan and check where she was headed. Assessment And Plan: Ms. Herrera is a 58-year-old patient in the rehabilitation unit with sequelae of stroke. Stroke affected the right brain and left body. 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 Left knee was replaced. Right knee significantly painful. She has pain patch on there. She has her own formulation and lidocaine patch will be added. In addition, she does have duloxeti ne on board along with [place] and muscle relaxants. Rehab And Medical Assessment And Plan: Again, Ms. Herrera is a 58-year-old patient in the rehabili tation unit again with sequelae of stroke. She has decreased mobility, decreased physical function, and degenerative joint disease lower extremities and knees. She has hypertension, dyslipi demia, muscle spasms, mild depression, GE reflux, constipation. Plan: She will continue with all the therapy as noted, physical and occupational therapy. Continue with all medications for her comorbid conditions. She is scheduled for discharge in the morning and will continue therapy via home health. She will follow up with her primary care physician and neurol ogist as scheduled. LACIE/BOZENA Voice ID: [id number] Report ID: [id number]
[2024-04-09 05:15] LABS: Absolute Basophils 0.1 K/uL (0-0.5); Absolute Eosinophils 0.2 K/uL (0-0.5); Absolute Lymphocytes (CBC) 3.4 K/uL (0.7-4.9); Absolute Monocytes 0.8 K/uL (0.1-1.3); Absolute Neutrophil 3.2 K/uL (1.8-8.0); Basophils % 0.8 % (0-1.3); Eosinophils % 2.9 % (0-4.4); Hemoglobin 16.7 g/dL (12.0-15.0); Lymphocytes % 44.1 % (15.3-44.8); MCHC 34.1 g/dL (32.0-36.0); MCV 102.7 fL (80-100); MPV 8.9 fL (7.6-11.3); Monocytes % 10.4 % (3.3-12.3); Neutrophils % 41.8 % (41.7-73.7); Nucleated Red Blood Cells % 0.1 % (0-0); Platelets 275 thou/uL (152-406); RBC Red Blood Cell Count 4.77 M/uL (3.86-4.86); Red Cell Distribution Width 14.9 % (12.1-15.2)
[2024-04-09 05:34] LABS: Albumin 3.3 g/dL (3.4-5.0); Anion Gap 7.8 mEq/L (5.0-15.0); Magnesium 2.2 mg/dL (1.6-2.4); Potassium 3.8 mEq/L (3.5-5.1); Prealbumin 25.7 mg/dL (20-40)
[2024-04-09 06:34] VITALS: TEMP 97.6
[2024-04-09] MEDS: LIDOCAINE 4% PATCH TOP SCH (06:47)
[2024-04-09 12:09] VITALS: BP 126/73
--- NOTE | 2024-04-10 00:55 | PN ---
Date of Progress Note: 04/09/2024 Time Of Service: 1:20 p.m. Subjective: Ms. Herrera is in a wheelchair, ready for discharge today. She is happy with therapy so far. Pain in the left shoulder is improved. Strength in the left arm not much improved. Objective: No fevers, chills, nausea, vomiting. No significant myalgias, arthralgias. No other iss ues. Physical Examination: Vital Signs: Blood pressure is 126/73, pulse 75, respiratory rate 16, temperature 97.6, oxygen satur ation 95%. General: Again, Ms. Herrera is sitting in a chair. HEENT: She appears normocephalic, atraumatic. Sclerae anicteric. Neuro: The left arm is in a shoulder brace pulling the left shoulder in reducing pain. Still has si gnificant weakness in the left proximal and distal upper extremity, improved strength in the left low er extremity compared to where she started. She is able to mobilize better. Laboratory Studies: Today, white blood cell count 7.6, hemoglobin 16.7, platelets 275. Sodium 139, potassium 3.8, chloride 108, carbon dioxide 27, BUN 18, creatinine 0.9, glucose 113, calcium 9.2, mag nesium 2.2, albumin 3.3, prealbumin 25.7. X-ray/imaging: No new x-rays or imaging. Medications: Today, medications have been reviewed and have been unchanged. She did have baclofen d ose adjusted yesterday to 5 mg tablet twice daily and 1.5 mg Ativan was given last night for muscle s pasms. Progress Made With Physical And Occupational Therapy: With physical therapy today, she did perform s wxsjy-xu-dnx transfers with minimum assistance. Multiple gns-cs-dkppj transfers with contact guard a ssistance and verbal cues. She mobilized with a rolling walker 75 feet twice and 55 feet 3 times wit h moderate to minimum assistance required. With occupational therapy, she did functional mobility ac tivities, pushing a wheelchair, aiming to stay in the middle of the hallway to avoid bumping into obj ects, and she did fairly well. She was shown some visual cues that may be helpful. Assessment: Ms. Herrera is a 58-year-old patient in the rehabilitation unit with sequelae of strok e affecting the left body, right brain. She has decreased mobility, decreased physical functioning, GE reflux, insomnia, constipation, muscle spasms, depression, anxiety, dyslipidemia, of course hypert ension. In addition, she has dry eyes. Plan: She will continue with physical and occupational therapy until discharge. Continue with all m edications that are noted. Comorbidities Impacting Rehabilitation: She has some significant increased tone in the left upper ex tremity and the stroke was over several months ago, more than 6 months ago, and likely she will recov er to a full useful function in the left arm, but she is still working hard despite the slow progress and she will continue therapy via Home Health. LACIE/BOZENA Voice ID: [id number] Report ID: [id number]
== END 2024-04-09 18:00 | disposition home health service (06) | DRG 57 ==
LOC: 5TH 09:25
PROVIDERS: ADMIT Psychiatry & Neurology Neurology with Special Qualifications in Child Neurology; ATTEND Psychiatry & Neurology Neurology with Special Qualifications in Child Neurology
DX: I69.354 Hemiplegia and hemiparesis following cerebral infarction affecting left non-dominant side (principal); I69.322 Dysarthria following cerebral infarction; I69.391 Dysphagia following cerebral infarction; H53.462 Homonymous bilateral field defects, left side; M54.2 Cervicalgia; M62.838 Other muscle spasm; K59.00 Constipation, unspecified; B00.1 Herpesviral vesicular dermatitis; L60.0 Ingrowing nail; R04.0 Epistaxis; M17.11 Unilateral primary osteoarthritis, right knee; I10 Essential (primary) hypertension; E78.5 Hyperlipidemia, unspecified; G47.00 Insomnia, unspecified; K21.9 Gastro-esophageal reflux disease without esophagitis; F32.A Depression, unspecified; F17.200 Nicotine dependence, unspecified, uncomplicated; Z96.652 Presence of left artificial knee joint
CPT/HCPCS: 36415; 74018; 80048; 81001; 82040; 83036; 83735; 84134; 85025; 87086; 87088; 97010; 97110; 97112; 97116; 97124; 97161; 97165; 97530; 97542; J2003